=== PATIENT | male | born 1955 | race Caucasian/White ===

== ENCOUNTER 2020-02-14 14:01 | Observation (INO) | payer OTHER ==
[2020-02-14] MEDS ORDERED: Sodium Chloride 0.9% 10 ML Syringe FLUSH PRN (14:27)
[2020-02-14] MEDS ORDERED: Sodium Chloride 0.9% 2.5 ML Syringe FLUSH PRN (14:27)
[2020-02-14] MEDS ORDERED: methylPREDNISolone Sodium Succinate 125 MG/2 ML SDV IVPUSH ONE (14:27)
[2020-02-14] MEDS ORDERED: Albuterol 0.083% 2.5 MG/3 ML Neb Soln NEB ONE ×3 (14:29→14:30)
[2020-02-14] MEDS ORDERED: Albuterol/Ipratropium 3.0-0.5 MG/3 ML Neb Soln NEB ONE (14:29)
[2020-02-14] MEDS ORDERED: Albuterol/Ipratropium 3.0-0.5 MG/3 ML Neb Soln ONE (14:33)
--- NOTE | 2020-02-14 14:35 | EDM.PDOC ---
ED HPI GENERAL MEDICAL PROBLEM - General Chief Complaint: General Stated Complaint: [facility] Time Seen by Provider: 02/14/20 14:02 - History of Present Illness INITIAL COMMENTS - FREE TEXT/NARRATIVE: Patient is a 64-year-old male with a history of asthma and a long smoking history who quit in November 2019 he is presenting with worsening shortness of breath. The patient states that he has been having gradually worsening trouble breathing and wheezing despite using home albuterol and Combivent inhalers over the last couple months. He reports he had 2 - Covid tests he reports some intermittent bilateral lateral chest tightness a nonproductive cough no fever patient has also had recent testing for H. pylori and reports that on CT he was told he had a thickened esophagus. He denies known sick contacts lower extremity swelling he denies any other prior history he denies prior cardiac history denies prior renal history. - Related Data Allergies Allergy/AdvReac Type Severity Reaction Status Date / Time No Known Allergies Allergy Verified 02/14/20 14:44 Home Meds: Home Meds Doxycycline Hyclate [Vibramycin] 1 tab PO BID 02/14/20 [History] Past Medical History Cardiovascular History: Reports: High Cholesterol ED ROS GENERAL - Review of Systems Review Of Systems: See Below Free Text/Narrative/Comment: General: No fever. Skin: No rash. Eyes: No vision problems. ENT: No sore throat. Neck: No neck stiffness. Respiratory: Per HPI Cardiac: Per HPI Gastrointestinal: No nausea, vomiting or abdominal pain. Urinary: No dysuria. Musculoskeletal: No myalgias/arthralgias. Neurologic: No headache. ED EXAM, GENERAL - Physical Exam Exam: See Below Free Text/Narrative:: General Appearance: Mildly increased work of breathing speaking in short sentences Skin: No rash HEENT: Normocephalic/atraumatic, sclera anicteric, mucous membranes moist Neck: Normal range of motion Chest and Lungs: Soft diffuse expiratory wheezing with markedly prolonged expiratory phase and increased work of breathing Cardiovascular: Regular rate and rhythm, no murmur Abdomen: Soft, non-tender Back: Normal Musculoskeletal: No edema or tenderness Neurologic: Awake, alert, no obvious deficits, moving all extremities Psychiatric: Appropriate, cooperative #1 Interpretation EKG Date: 02/14/20 Time: 15:52 EKG Interpretation Comments: Normal sinus rhythm with a rate of 98 normal axis and intervals without acute ischemia Course - Vital Signs Last Recorded V/S: Last Vital Signs Temp 97.9 F 02/14/20 14:38 Pulse 96 02/14/20 15:51 Resp 19 02/14/20 14:38 BP 136/98 H 02/14/20 15:51 Pulse Ox 93 L 02/14/20 15:51 - Orders/Labs/Meds Orders: Active Orders 24 hr Category Date Time Status Patient Status [ADT] Routine ADT 02/14/20 16:39 Ordered EKG Documentation Completion [RC] STAT Care 02/14/20 14:27 Active RT Aerosol Therapy [RC] ASDIRECTED Care 02/14/20 14:29 Active Sodium Chloride 0.9% [Saline Flush] Med 02/14/20 14:27 Active 10 ml FLUSH ASDIRECTED PRN Sodium Chloride 0.9% [Saline Flush] Med 02/14/20 14:27 Active 2.5 ml FLUSH ASDIRECTED PRN BiPAP [RESPCARE] Stat Oth 02/14/20 15:21 Active Saline Lock Insert [OM.PC] Stat Oth 02/14/20 14:27 Ordered Medication Orders Sodium Chloride (Saline Flush) 10 ml FLUSH ASDIRECTED PRN PRN Reason: Keep Vein Open Last Admin: 02/14/20 15:08 Dose: 10 ml Documented by: [id number] Sodium Chloride (Saline Flush) 2.5 ml FLUSH ASDIRECTED PRN PRN Reason: Keep Vein Open Last Admin: 02/14/20 15:08 Dose: 2.5 ml Documented by: [id number] Labs: Laboratory Tests 02/14/20 02/14/20 02/14/20 Range/Units 15:14 15:14 15:14 WBC 7.79 (4.0-11.0) K/uL RBC 5.38 (4.50-5.90) M/uL Hgb 18.2 H (13.0-17.0) g/dL Hct 52.1 H (38.0-50.0) % MCV 96.8 (80.0-98.0) fL MCH 33.8 H (27.0-32.0) pg MCHC 34.9 (31.0-37.0) g/dL RDW Std Deviation 47.8 (28.0-62.0) fl RDW Coeff of Elly 14 (11.0-15.0) % Plt Count 178 (150-400) K/uL MPV 11.40 (7.40-12.00) fL Neut % (Auto) 46.4 L (48.0-80.0) % Lymph % (Auto) 21.8 (16.0-40.0) % [place]christ % (Auto) 19.4 H (0.0-15.0) % Eos % (Auto) 11.9 H (0.0-7.0) % Baso % (Auto) 0.5 (0.0-1.5) % Neut # (Auto) 3.6 (1.4-5.7) K/uL Lymph # (Auto) 1.7 (0.6-2.4) K/uL Gilchrist # (Auto) 1.5 H (0.0-0.8) K/uL Eos # (Auto) 0.9 H (0.0-0.7) K/uL Baso # (Auto) 0.0 (0.0-0.1) K/uL Nucleated RBC % 0.0 /100WBC Nucleated RBCs # 0 K/uL D-Dimer, Quantitative 0.34 (0.0-0.50) mg/L FEU Sodium 138 (136-148) mmol/L Potassium 4.4 (3.5-5.1) mmol/L Chloride 102 (98-107) mmol/L Carbon Dioxide 27.7 (21.0-32.0) mmol/L BUN 14 (7.0-18.0) mg/dL Creatinine 1.2 (0.8-1.3) mg/dL Est Cr Clr Drug Dosing 63.37 mL/min Estimated GFR (MDRD) > 60.0 ml/min Glucose 103 (74-106) mg/dL Calcium 9.6 (8.5-10.1) mg/dL Total Bilirubin 0.7 (0.2-1.0) mg/dL AST 18 (15-37) IU/L ALT 26 (14-63) IU/L Alkaline Phosphatase 112 (46-116) U/L Troponin I < 0.050 (0.000-0.056) ng/mL Total Protein 7.7 (6.4-8.2) g/dL Albumin 3.9 (3.4-5.0) g/dL Globulin 3.8 (2.6-4.0) g/dL Albumin/Globulin Ratio 1.0 (0.9-1.6) Influenza Type A RNA (NEGATIVE) Influenza Type B RNA (NEGATIVE) SARS-CoV-2 RNA (MALENA) (NEGATIVE) 02/14/20 Range/Units 15:40 WBC (4.0-11.0) K/uL RBC (4.50-5.90) M/uL Hgb (13.0-17.0) g/dL Hct (38.0-50.0) % MCV (80.0-98.0) fL MCH (27.0-32.0) pg MCHC (31.0-37.0) g/dL RDW Std Deviation (28.0-62.0) fl RDW Coeff of Elly (11.0-15.0) % Plt Count (150-400) K/uL MPV (7.40-12.00) fL Neut % (Auto) (48.0-80.0) % Lymph % (Auto) (16.0-40.0) % [place]christ % (Auto) (0.0-15.0) % Eos % (Auto) (0.0-7.0) % Baso % (Auto) (0.0-1.5) % Neut # (Auto) (1.4-5.7) K/uL Lymph # (Auto) (0.6-2.4) K/uL Gilchrist # (Auto) (0.0-0.8) K/uL Eos # (Auto) (0.0-0.7) K/uL Baso # (Auto) (0.0-0.1) K/uL Nucleated RBC % /100WBC Nucleated RBCs # K/uL D-Dimer, Quantitative (0.0-0.50) mg/L FEU Sodium (136-148) mmol/L Potassium (3.5-5.1) mmol/L Chloride (98-107) mmol/L Carbon Dioxide (21.0-32.0) mmol/L BUN (7.0-18.0) mg/dL Creatinine (0.8-1.3) mg/dL Est Cr Clr Drug Dosing mL/min Estimated GFR (MDRD) ml/min Glucose (74-106) mg/dL Calcium (8.5-10.1) mg/dL Total Bilirubin (0.2-1.0) mg/dL AST (15-37) IU/L ALT (14-63) IU/L Alkaline Phosphatase (46-116) U/L Troponin I (0.000-0.056) ng/mL Total Protein (6.4-8.2) g/dL Albumin (3.4-5.0) g/dL Globulin (2.6-4.0) g/dL Albumin/Globulin Ratio (0.9-1.6) Influenza Type A RNA NEGATIVE (NEGATIVE) Influenza Type B RNA NEGATIVE (NEGATIVE) SARS-CoV-2 RNA (MALENA) NEGATIVE (NEGATIVE) Meds: Medications Generic Name Dose Route Start Last Admin Trade Name Freq PRN Reason Stop Dose Admin Sodium Chloride 10 ml 02/14/20 14:27 02/14/20 15:08 Saline Flush FLUSH 10 ml ASDIRECTED PRN Administration Keep Vein Open Sodium Chloride 2.5 ml 02/14/20 14:27 02/14/20 15:08 Saline Flush FLUSH 2.5 ml ASDIRECTED PRN Administration Keep Vein Open Discontinued Medications Generic Name Dose Route Start Last Admin Trade Name Freq PRN Reason Stop Dose Admin Albuterol 2.5 mg 02/14/20 14:29 02/14/20 14:47 Proventil Neb Soln [facility] 02/14/20 14:30 2.5 mg ONETIME ONE Administration Albuterol 2.5 mg 02/14/20 14:29 02/14/20 14:48 Proventil Neb Soln [facility] 02/14/20 14:30 2.5 mg ONETIME ONE Administration Albuterol 2.5 mg 02/14/20 14:30 02/14/20 14:48 Proventil Neb Soln [facility] 02/14/20 14:31 2.5 mg ONETIME ONE Administration Albuterol/Ipratropium 3 ml 02/14/20 14:29 02/14/20 15:16 Duoneb 3.0-0.5 Mg/3 Ml [facility] 02/14/20 14:30 Not Given ONETIME ONE Albuterol/Ipratropium Confirm 02/14/20 14:33 02/14/20 14:47 Duoneb 3.0-0.5 Mg/3 Ml Administered 02/14/20 14:34 3 ml Dose Administration 3 ml .ROUTE .STK-MED ONE Methylprednisolone Sodium Succinate 125 mg 02/14/20 14:27 02/14/20 15:08 Solu-Medrol IVPUSH 02/14/20 14:28 125 mg ONETIME ONE Administration Departure - Departure Time of Disposition: 16:41 Disposition: Admitted As Inpatient 65 Condition: Fair Clinical Impression: Acute and chronic respiratory failure with hypoxia - Discharge Information *PRESCRIPTION DRUG MONITORING PROGRAM REVIEWED*: Not Applicable *COPY OF PRESCRIPTION DRUG MONITORING REPORT IN PATIENT JANNIE: Not Applicable Forms: ED Department Discharge Critical Care Note - Critical Care Note Total Time (mins): 50 Comments: Patient presents in respiratory distress and hypoxic respiratory failure requiring prompt evaluation initiation of treatment required to stop seeing other patients requiring complex decision making. Sepsis Event Note (ED) - Focused Exam Vital Signs: Vital Signs Temp Pulse Resp BP Pulse Ox 02/14/20 15:51 96 136/98 H 93 L 02/14/20 15:48 97 125/98 H 94 L 02/14/20 15:36 101 H 151/95 H 92 L 02/14/20 15:21 103 H 155/95 H 92 L 02/14/20 15:06 100 144/87 H 96 02/14/20 14:51 90 131/80 96 02/14/20 14:42 90 131/93 H 94 L 02/14/20 14:38 97.9 F 98 19 155/95 H 88 L - My Orders Last 24 Hours: My Active Orders 02/14/20 14:27 EKG Documentation Completion [RC] STAT Sodium Chloride 0.9% [Saline Flush] 10 ml FLUSH ASDIRECTED PRN Sodium Chloride 0.9% [Saline Flush] 2.5 ml FLUSH ASDIRECTED PRN Saline Lock Insert [OM.PC] Stat 02/14/20 14:29 RT Aerosol Therapy [RC] ASDIRECTED 02/14/20 15:21 BiPAP [RESPCARE] Stat 02/14/20 16:39 Patient Status [ADT] Routine - Assessment/Plan Last 24 Hours: My Active Orders 02/14/20 14:27 EKG Documentation Completion [RC] STAT Sodium Chloride 0.9% [Saline Flush] 10 ml FLUSH ASDIRECTED PRN Sodium Chloride 0.9% [Saline Flush] 2.5 ml FLUSH ASDIRECTED PRN Saline Lock Insert [OM.PC] Stat 02/14/20 14:29 RT Aerosol Therapy [RC] ASDIRECTED 02/14/20 15:21 BiPAP [RESPCARE] Stat 02/14/20 16:39 Patient Status [ADT] Routine Assessment:: 64-year-old male presenting with hypoxic respiratory failure and a clinical picture that is overall most consistent with COPD. Primary cardiac process considered I think it is unlikely but EKG and troponin pending. PE considered I think this is unlikely as well but D-dimer pending. We have no data for his recent Covid test so Covid needs to be considered and relevant swabs pending as well. Patient does have some mild to moderate respiratory distress at this point and DuoNeb with additional albuterol for a total of hour-long treatment has been ordered in addition to 125 of Solu-Medrol. Given his room air saturation of less than 88% he will require admission for hypoxic respiratory failure. Pneumonia pneumothorax very unlikely but chest x-ray pending. Patient is respiratory status led to a delay in obtaining his EKG. 1525: Patient's labs show significant increase in his hemoglobin consistent with chronic hypoxic respiratory failure. Patient has had minimal improvement after the hour-long breathing treatment and steroids after discussion with the patient we will transition to BiPAP. Patient is developing generalized headache that he relates to his breathing I think it is likely related to his breathing and the multiple doses of albuterol that he has been receiving. That said given his respiratory state I do not think Reglan Benadryl narcotics are appropriate at this stage. 1630: On reassessment the patient is breathing much more comfortably on the BiPAP he is speaking in full sentences his headache has improved and his work of breathing is improved. He is satting in the mid 90s on 10/5 with an FiO2 of 40%. Given his hypoxic respiratory failure I think admission for further treatment and evaluation is prudent D-dimer Covid swab and other blood work is unremarkable. We await callback from the hospitalist. 1640: Pt discussed with Dr. Carrera. Will admit to the ICU given the patient's new BiPaP requirement.
--- NOTE | 2020-02-14 15:02 | CR ---
TECHNIQUE: Frontal chest radiograph, single AP view. INDICATION: Cough and shortness of breath. COMPARISON: None available. FINDINGS: No focal pulmonary opacity, pneumothorax, or pleural effusion. Normal cardiac and mediastinal contours. IMPRESSION: No acute cardiopulmonary findings. Dictated by Naun Guy MD @ 02/14/2020 3:02:13 PM Dictated by: Naun Guy MD @ 02/14/2020 15:02:20 (Electronically Signed)
[2020-02-14 15:55] LABS: BLOOD UREA NITROGEN,BUN 14 mg/dL (7.0-18.0); CARBON DIOXIDE,CO2 27.7 mmol/L (21.0-32.0); CHLORIDE,CL 102 mmol/L (98-107); GLUCOSE RANDOM 103 mg/dL (74-106); POTASSIUM,K 4.4 mmol/L (3.5-5.1); SODIUM,NA 138 mmol/L (136-148)
[2020-02-14 16:28] LABS: CORONAVIRUS COVID-19 NAA NEGATIVE (NEGATIVE); INFLUENZA A NAA NEGATIVE (NEGATIVE); INFLUENZA B NAA NEGATIVE (NEGATIVE)
--- NOTE | 2020-02-14 17:48 | PN ---
THC Physician - Brief Progress [id number]/01/2021 17:31[facility] [place], [place] - OBED (CINDY) - OBED ROLF PEÑADate of Service 02/14/2020 17:31HPI/Events of Note eICU admission note64 year-old male with past history significant for asthma and likely COPD overlap presented to the hospital with shortness of breath. Patient mentions progressively worsening dyspnea over the last couple of months without significant improvement with inhalers. He does have a ssociated chest tightness as well as nonproductive cough. On arrival to the ED patient was noted to b e tachycardic in the 90s with otherwise stable vitals. Initial blood work was relatively unremarkable with the exception of polycythemia at 18.2. Patient was given nebs along with Solu-Medrol and initia mick on BiPAP given work of breathing and admitted to the ICU for closer monitoring.Patient seen on ca dottie, does not appear to be in acute distress at this time and seems comfortable currently on BiPAP.V ital signs reviewedLab/EMR reviewedCOPD exacerbation-Agree with scheduled nebs along with Solu-Medrol .-Recommend initiating either doxycycline or azithromycin which ever is available for anti-inflammato ry purposes and atypical coverage.-Chest x-ray without any acute process and patient significantly im proved with ER management thus agree bacterial infectious process is less likely.-Once patient has si gnificantly improved in terms of work of breathing and wheezing recommend trialing off BiPAP at that time. Continue scheduled nebs along with steroids until then.Thank you for allowing us to participat e in the care of this patient.Interventions Major-Respiratory failure - evaluation and managementElec tronically Signed by: YOLIS BELLA) on 02/14/2020 17:47
[2020-02-14] MEDS ORDERED: Albuterol/Ipratropium 3.0-0.5 MG/3 ML Neb Soln NEB PRN (19:33)
[2020-02-14] MEDS ORDERED: Azithromycin 500 MG Vial IV SCH (19:45)
--- NOTE | 2020-02-14 20:05 | PCM.HP.2 ---
H&P History of Present Illness - General Date of Service: 02/14/20 Admit Problem/Dx: Admission Diagnosis/Problem Admission Diagnosis/Problem Respiratory failure with hypoxia - History of Present Illness Initial Comments - Free Text/Narative: 64 yo male with pmh of COPD who reports in November had a COPD exacerbation and since has not been back to his normal self. PAtient reports over past several days increasing shortness of breath, wheezing, and cough. He denies any fevers or chest pain. He was seen in [facility] clinic and given doxycyline. He Called the [facility] who told him to go to the ER today. IN the ED he was noted to be in some respiratory distress, he was given duonebs and BIPAP with improvement in his symptoms. - Related Data Allergies/Adverse Reactions: Allergies Allergy/AdvReac Type Severity Reaction Status Date / Time No Known Allergies Allergy Verified 02/14/20 20:20 Home Medications: Home Meds Doxycycline Hyclate [Vibramycin] 1 tab PO BID 02/14/20 [History] Past Medical History Cardiovascular History: Reports: High Cholesterol Respiratory History: Reports: Asthma, COPD Social & Family History - Tobacco Use Tobacco Use Status *Q: Former Tobacco User Years of Tobacco use: 45 Packs/Tins Daily: 1.5 Used Tobacco, but Quit: Yes Month/Year Tobacco Last Used: 11/2019 - Caffeine Use Caffeine Use: Reports: Coffee - Recreational Drug Use Recreational Drug Use: No H&P Review of Systems - Review of Systems: Review Of Systems: Comprehensive ROS is negative, except as noted in HPI. Exam - Exam Exam: See Below - Vital Signs Vital Signs: Last Vital Signs Temp 35.8 C L 02/14/20 17:35 Pulse 82 02/14/20 17:06 Resp 18 02/14/20 17:35 BP 123/82 02/14/20 17:35 Pulse Ox 98 02/14/20 17:35 Weight: 77.819 kg - Exam General: Alert, Oriented HEENT: Mucosa Moist & [place] Lungs: Normal Respiratory Effort, Wheezing Cardiovascular: Regular Rate, Regular Rhythm GI/Abdominal Exam: Normal Bowel Sounds, Soft, Non-Tender Extremities: Non-Tender, No Pedal Edema Skin: Warm, Dry, Intact - Patient Data Lab Results Last 24 hrs: Laboratory Results - last 24 hr 02/14/20 02/14/20 02/14/20 Range/Units 15:14 15:14 15:14 WBC 7.79 (4.0-11.0) K/uL RBC 5.38 (4.50-5.90) M/uL Hgb 18.2 H (13.0-17.0) g/dL Hct 52.1 H (38.0-50.0) % MCV 96.8 (80.0-98.0) fL MCH 33.8 H (27.0-32.0) pg MCHC 34.9 (31.0-37.0) g/dL RDW Std Deviation 47.8 (28.0-62.0) fl RDW Coeff of Elly 14 (11.0-15.0) % Plt Count 178 (150-400) K/uL MPV 11.40 (7.40-12.00) fL Neut % (Auto) 46.4 L (48.0-80.0) % Lymph % (Auto) 21.8 (16.0-40.0) % [place] % (Auto) 19.4 H (0.0-15.0) % Eos % (Auto) 11.9 H (0.0-7.0) % Baso % (Auto) 0.5 (0.0-1.5) % Neut # (Auto) 3.6 (1.4-5.7) K/uL Lymph # (Auto) 1.7 (0.6-2.4) K/uL [place] # (Auto) 1.5 H (0.0-0.8) K/uL Eos # (Auto) 0.9 H (0.0-0.7) K/uL Baso # (Auto) 0.0 (0.0-0.1) K/uL Nucleated RBC % 0.0 /100WBC Nucleated RBCs # 0 K/uL D-Dimer, Quantitative 0.34 (0.0-0.50) mg/L FEU ABG pH (7.35-7.45) ABG pCO2 (35-45) mmHG ABG pO2 (75-100) mmHG ABG HCO3 (22-26) mEq/L ABG Total CO2 ABG Base Excess (-2.0-2.0) Sodium 138 (136-148) mmol/L Potassium 4.4 (3.5-5.1) mmol/L Chloride 102 (98-107) mmol/L Carbon Dioxide 27.7 (21.0-32.0) mmol/L BUN 14 (7.0-18.0) mg/dL Creatinine 1.2 (0.8-1.3) mg/dL Est Cr Clr Drug Dosing 63.37 mL/min Estimated GFR (MDRD) > 60.0 ml/min Glucose 103 (74-106) mg/dL Calcium 9.6 (8.5-10.1) mg/dL Total Bilirubin 0.7 (0.2-1.0) mg/dL AST 18 (15-37) IU/L ALT 26 (14-63) IU/L Alkaline Phosphatase 112 (46-116) U/L Troponin I < 0.050 (0.000-0.056) ng/mL Total Protein 7.7 (6.4-8.2) g/dL Albumin 3.9 (3.4-5.0) g/dL Globulin 3.8 (2.6-4.0) g/dL Albumin/Globulin Ratio 1.0 (0.9-1.6) Influenza Type A RNA (NEGATIVE) Influenza Type B RNA (NEGATIVE) SARS-CoV-2 RNA (MALENA) (NEGATIVE) 02/14/20 02/14/20 Range/Units 15:40 18:10 WBC (4.0-11.0) K/uL RBC (4.50-5.90) M/uL Hgb (13.0-17.0) g/dL Hct (38.0-50.0) % MCV (80.0-98.0) fL MCH (27.0-32.0) pg MCHC (31.0-37.0) g/dL RDW Std Deviation (28.0-62.0) fl RDW Coeff of Elly (11.0-15.0) % Plt Count (150-400) K/uL MPV (7.40-12.00) fL Neut % (Auto) (48.0-80.0) % Lymph % (Auto) (16.0-40.0) % [place] % (Auto) (0.0-15.0) % Eos % (Auto) (0.0-7.0) % Baso % (Auto) (0.0-1.5) % Neut # (Auto) (1.4-5.7) K/uL Lymph # (Auto) (0.6-2.4) K/uL [place]kin # (Auto) (0.0-0.8) K/uL Eos # (Auto) (0.0-0.7) K/uL Baso # (Auto) (0.0-0.1) K/uL Nucleated RBC % /100WBC Nucleated RBCs # K/uL D-Dimer, Quantitative (0.0-0.50) mg/L FEU ABG pH 7.384 (7.35-7.45) ABG pCO2 44 (35-45) mmHG ABG pO2 106 H (75-100) mmHG ABG HCO3 27 H (22-26) mEq/L ABG Total CO2 22.5 ABG Base Excess 0.8 (-2.0-2.0) Sodium (136-148) mmol/L Potassium (3.5-5.1) mmol/L Chloride (98-107) mmol/L Carbon Dioxide (21.0-32.0) mmol/L BUN (7.0-18.0) mg/dL Creatinine (0.8-1.3) mg/dL Est Cr Clr Drug Dosing mL/min Estimated GFR (MDRD) ml/min Glucose (74-106) mg/dL Calcium (8.5-10.1) mg/dL Total Bilirubin (0.2-1.0) mg/dL AST (15-37) IU/L ALT (14-63) IU/L Alkaline Phosphatase (46-116) U/L Troponin I (0.000-0.056) ng/mL Total Protein (6.4-8.2) g/dL Albumin (3.4-5.0) g/dL Globulin (2.6-4.0) g/dL Albumin/Globulin Ratio (0.9-1.6) Influenza Type A RNA NEGATIVE (NEGATIVE) Influenza Type B RNA NEGATIVE (NEGATIVE) SARS-CoV-2 RNA (MALENA) NEGATIVE (NEGATIVE) Result Diagrams: 02/14/20 15:14 02/14/20 15:14 Sepsis Event Note - Evaluation Sepsis Screening Result: No Definite Risk - Focused Exam Vital Signs: Vital Signs Temp Pulse Resp BP Pulse Ox 02/14/20 17:35 35.8 C L 18 123/82 98 02/14/20 17:06 82 23 H 127/82 98 02/14/20 16:21 88 126/84 96 02/14/20 15:51 96 136/98 H 93 L 02/14/20 15:48 97 125/98 H 94 L 02/14/20 15:36 101 H 151/95 H 92 L 02/14/20 15:21 103 H 155/95 H 92 L 02/14/20 15:06 100 144/87 H 96 02/14/20 14:51 90 131/80 96 02/14/20 14:42 90 131/93 H 94 L 02/14/20 14:38 36.6 C 98 19 155/95 H 88 L Problem List Initiated/Reviewed/Updated: Yes Orders Last 24hrs: Active Orders 24 hr Category Date Time Status Patient Status [ADT] Routine ADT 02/14/20 16:39 Active EKG Documentation Completion [RC] STAT Care 02/14/20 14:27 Active RT Aerosol Therapy [RC] ASDIRECTED Care 02/14/20 14:29 Active RT Aerosol Therapy [RC] ASDIRECTED Care 02/14/20 19:34 Ordered Regular Diet [DIET] Diet 02/14/20 Dinner Active BASIC METABOLIC PANEL,BMP [CHEM] AM Lab 02/15/20 05:11 Ordered BASIC METABOLIC PANEL,BMP [CHEM] AM Lab 02/16/20 05:11 Ordered CBC WITH AUTO DIFF [HEME] AM Lab 02/15/20 05:11 Ordered CBC WITH AUTO DIFF [HEME] AM Lab 02/16/20 05:11 Ordered Albuterol/Ipratropium [DuoNeb 3.0-0.5 MG/3 ML] Med 02/14/20 19:33 Ordered 3 ml NEB Q4HRRT PRN Albuterol/Ipratropium [DuoNeb 3.0-0.5 MG/3 ML] Med 02/15/20 00:00 Ordered 3 ml NEB Q6HRRT Azithromycin [Zithromax] 500 mg Med 02/14/20 20:00 Active Sodium Chloride 0.9% [Normal Saline (AdvBag)] 250 ml IV Q24H Sodium Chloride 0.9% [Saline Flush] Med 02/14/20 14:27 Active 10 ml FLUSH ASDIRECTED PRN Sodium Chloride 0.9% [Saline Flush] Med 02/14/20 14:27 Active 2.5 ml FLUSH ASDIRECTED PRN methylPREDNISolone Sod Succ [Solu-MEDROL] Med 02/15/20 02:00 Ordered 125 mg IVPUSH Q12H BiPAP [RESPCARE] Stat Oth 02/14/20 15:21 Active Saline Lock Insert [OM.PC] Stat Oth 02/14/20 14:27 Ordered Medication Orders Albuterol/Ipratropium (Duoneb 3.0-0.5 Mg/3 Ml) 3 ml NEB Q6HRRT [place] Albuterol/Ipratropium (Duoneb 3.0-0.5 Mg/3 Ml) 3 ml NEB Q4HRRT PRN PRN Reason: Wheezing Azithromycin 500 mg/ Sodium (Chloride) 250 mls @ 250 mls/hr IV Q24H [place] Methylprednisolone Sodium Succinate (Solu-Medrol) 125 mg IVPUSH Q12H [place] Sodium Chloride (Saline Flush) 10 ml FLUSH ASDIRECTED PRN PRN Reason: Keep Vein Open Last Admin: 02/14/20 15:08 Dose: 10 ml Documented by: [id number] Sodium Chloride (Saline Flush) 2.5 ml FLUSH ASDIRECTED PRN PRN Reason: Keep Vein Open Last Admin: 02/14/20 15:08 Dose: 2.5 ml Documented by: [id number] Assessment/Plan Comment:: 64 yo male admitted for acute hypoxic respiratory failure due to COPD exacerbation. Patient has been weened off BIPAP and is now on 3 L NC. Treating with Solumedrol, duonebs and azithromycin.
[2020-02-14] MEDS: Azithromycin 500 MG in Sodium Chloride 0.9% 250 ML IV SCH (20:15)
--- NOTE | 2020-02-14 22:36 | PN ---
THC Physician - Brief Progress [id number]/01/2021 22:34[facility] [place] [place] [facility] (CINDY[facility] - ROLF MILLARDDate of Service 02/14/2020 22:34HPI/Events of Note TUMS requested for heart burn, order placedInterventions Minor-Routine modifications to care plan (e.g. PRN medications for pain, fever)
[2020-02-14] MEDS: Calcium Carbonate 500 MG Tab.Chew PO PRN (22:44)
[2020-02-14] MEDS: Albuterol/Ipratropium 3.0-0.5 MG/3 ML Neb Soln NEB SCH (23:28)
[2020-02-14] MEDS: guaiFENesin 100 MG/5 ML Soln 5 ML UD Cup PO PRN (23:28)
--- NOTE | 2020-02-15 00:36 | PN ---
THC Physician - Brief Progress [id number]/01/2021 23:07[facility] jan [place], [place] - OBED (CINDY) - ROLF MILLARDDate of Service 02/14/2020 23:07HPI/Events of Note Cough - robitussin orderedInterventions Minor-Routine modifications to care plan (e.g. PRN m edications for pain, fever)
[2020-02-15] MEDS: methylPREDNISolone Sodium Succinate 125 MG/2 ML SDV IVPUSH SCH ×2 (01:20→13:01)
[2020-02-15] MEDS: Albuterol/Ipratropium 3.0-0.5 MG/3 ML Neb Soln NEB SCH ×4 (05:02→23:18)
[2020-02-15 06:48] LABS: CARBON DIOXIDE,CO2 29.8 mmol/L (21.0-32.0); POTASSIUM,K 5.2 mmol/L (3.5-5.1)
[2020-02-15] MEDS ORDERED: Acetaminophen 325 MG Tab PO ONE (08:43)
[2020-02-15] MEDS ORDERED: Celecoxib 100 MG Cap PO PRN (10:45)
[2020-02-15] MEDS: guaiFENesin 100 MG/5 ML Soln 5 ML UD Cup PO PRN ×2 (10:46→21:50)
--- NOTE | 2020-02-15 10:50 | PCM.PN ---
- General Info Date of Service: 02/15/20 - Review of Systems Systems Review Comment:: patient reports breathing has improved, reports cough - Patient Data Vitals - Most Recent: Last Vital Signs Temp 37.1 C 02/15/20 08:00 Pulse 82 02/14/20 17:06 Resp 18 02/15/20 09:00 BP 118/83 02/15/20 09:00 Pulse Ox 91 L 02/15/20 10:20 Weight - Most Recent: 78.698 kg I&O - Last 24 Hours: Intake & Output 02/14/20 02/15/20 02/15/20 22:59 06:59 14:59 Intake Total 850 Output Total 0 Balance 850 Lab Results Last 24 Hours: Laboratory Results - last 24 hr 02/14/20 02/14/20 02/14/20 Range/Units 15:14 15:14 15:14 WBC 7.79 (4.0-11.0) K/uL RBC 5.38 (4.50-5.90) M/uL Hgb 18.2 H (13.0-17.0) g/dL Hct 52.1 H (38.0-50.0) % MCV 96.8 (80.0-98.0) fL MCH 33.8 H (27.0-32.0) pg MCHC 34.9 (31.0-37.0) g/dL RDW Std Deviation 47.8 (28.0-62.0) fl RDW Coeff of Elly 14 (11.0-15.0) % Plt Count 178 (150-400) K/uL MPV 11.40 (7.40-12.00) fL Neut % (Auto) 46.4 L (48.0-80.0) % Lymph % (Auto) 21.8 (16.0-40.0) % [place] % (Auto) 19.4 H (0.0-15.0) % Eos % (Auto) 11.9 H (0.0-7.0) % Baso % (Auto) 0.5 (0.0-1.5) % Neut # (Auto) 3.6 (1.4-5.7) K/uL Lymph # (Auto) 1.7 (0.6-2.4) K/uL [place] # (Auto) 1.5 H (0.0-0.8) K/uL Eos # (Auto) 0.9 H (0.0-0.7) K/uL Baso # (Auto) 0.0 (0.0-0.1) K/uL Nucleated RBC % 0.0 /100WBC Nucleated RBCs # 0 K/uL D-Dimer, Quantitative 0.34 (0.0-0.50) mg/L FEU ABG pH (7.35-7.45) ABG pCO2 (35-45) mmHG ABG pO2 (75-100) mmHG ABG HCO3 (22-26) mEq/L ABG Total CO2 ABG Base Excess (-2.0-2.0) Sodium 138 (136-148) mmol/L Potassium 4.4 (3.5-5.1) mmol/L Chloride 102 (98-107) mmol/L Carbon Dioxide 27.7 (21.0-32.0) mmol/L BUN 14 (7.0-18.0) mg/dL Creatinine 1.2 (0.8-1.3) mg/dL Est Cr Clr Drug Dosing 63.37 mL/min Estimated GFR (MDRD) > 60.0 ml/min Glucose 103 (74-106) mg/dL Calcium 9.6 (8.5-10.1) mg/dL Total Bilirubin 0.7 (0.2-1.0) mg/dL AST 18 (15-37) IU/L ALT 26 (14-63) IU/L Alkaline Phosphatase 112 (46-116) U/L Troponin I < 0.050 (0.000-0.056) ng/mL Total Protein 7.7 (6.4-8.2) g/dL Albumin 3.9 (3.4-5.0) g/dL Globulin 3.8 (2.6-4.0) g/dL Albumin/Globulin Ratio 1.0 (0.9-1.6) Influenza Type A RNA (NEGATIVE) Influenza Type B RNA (NEGATIVE) SARS-CoV-2 RNA (MALENA) (NEGATIVE) 02/14/20 02/14/20 02/15/20 Range/Units 15:40 18:10 06:10 WBC 8.67 (4.0-11.0) K/uL RBC 5.06 (4.50-5.90) M/uL Hgb 16.8 (13.0-17.0) g/dL Hct 48.7 (38.0-50.0) % MCV 96.2 (80.0-98.0) fL MCH 33.2 H (27.0-32.0) pg MCHC 34.5 (31.0-37.0) g/dL RDW Std Deviation 46.8 (28.0-62.0) fl RDW Coeff of Elly 13 (11.0-15.0) % Plt Count 186 (150-400) K/uL MPV 11.20 (7.40-12.00) fL Neut % (Auto) 94.2 H (48.0-80.0) % Lymph % (Auto) 4.3 L (16.0-40.0) % [place] % (Auto) 1.5 (0.0-15.0) % Eos % (Auto) 0.0 (0.0-7.0) % Baso % (Auto) 0.0 (0.0-1.5) % Neut # (Auto) 8.2 H (1.4-5.7) K/uL Lymph # (Auto) 0.4 L (0.6-2.4) K/uL [place] # (Auto) 0.1 (0.0-0.8) K/uL Eos # (Auto) 0.0 (0.0-0.7) K/uL Baso # (Auto) 0.0 (0.0-0.1) K/uL Nucleated RBC % 0.0 /100WBC Nucleated RBCs # 0 K/uL D-Dimer, Quantitative (0.0-0.50) mg/L FEU ABG pH 7.384 (7.35-7.45) ABG pCO2 44 (35-45) mmHG ABG pO2 106 H (75-100) mmHG ABG HCO3 27 H (22-26) mEq/L ABG Total CO2 22.5 ABG Base Excess 0.8 (-2.0-2.0) Sodium (136-148) mmol/L Potassium (3.5-5.1) mmol/L Chloride (98-107) mmol/L Carbon Dioxide (21.0-32.0) mmol/L BUN (7.0-18.0) mg/dL Creatinine (0.8-1.3) mg/dL Est Cr Clr Drug Dosing mL/min Estimated GFR (MDRD) ml/min Glucose (74-106) mg/dL Calcium (8.5-10.1) mg/dL Total Bilirubin (0.2-1.0) mg/dL AST (15-37) IU/L ALT (14-63) IU/L Alkaline Phosphatase (46-116) U/L Troponin I (0.000-0.056) ng/mL Total Protein (6.4-8.2) g/dL Albumin (3.4-5.0) g/dL Globulin (2.6-4.0) g/dL Albumin/Globulin Ratio (0.9-1.6) Influenza Type A RNA NEGATIVE (NEGATIVE) Influenza Type B RNA NEGATIVE (NEGATIVE) SARS-CoV-2 RNA (MALENA) NEGATIVE (NEGATIVE) 02/15/20 Range/Units 06:10 WBC (4.0-11.0) K/uL RBC (4.50-5.90) M/uL Hgb (13.0-17.0) g/dL Hct (38.0-50.0) % MCV (80.0-98.0) fL MCH (27.0-32.0) pg MCHC (31.0-37.0) g/dL RDW Std Deviation (28.0-62.0) fl RDW Coeff of Elly (11.0-15.0) % Plt Count (150-400) K/uL MPV (7.40-12.00) fL Neut % (Auto) (48.0-80.0) % Lymph % (Auto) (16.0-40.0) % [place] % (Auto) (0.0-15.0) % Eos % (Auto) (0.0-7.0) % Baso % (Auto) (0.0-1.5) % Neut # (Auto) (1.4-5.7) K/uL Lymph # (Auto) (0.6-2.4) K/uL [place] # (Auto) (0.0-0.8) K/uL Eos # (Auto) (0.0-0.7) K/uL Baso # (Auto) (0.0-0.1) K/uL Nucleated RBC % /100WBC Nucleated RBCs # K/uL D-Dimer, Quantitative (0.0-0.50) mg/L FEU ABG pH (7.35-7.45) ABG pCO2 (35-45) mmHG ABG pO2 (75-100) mmHG ABG HCO3 (22-26) mEq/L ABG Total CO2 ABG Base Excess (-2.0-2.0) Sodium 137 (136-148) mmol/L Potassium 5.2 H (3.5-5.1) mmol/L Chloride 102 (98-107) mmol/L Carbon Dioxide 29.8 (21.0-32.0) mmol/L BUN 19 H (7.0-18.0) mg/dL Creatinine 1.3 (0.8-1.3) mg/dL Est Cr Clr Drug Dosing 58.49 mL/min Estimated GFR (MDRD) 55.4 ml/min Glucose 167 H (74-106) mg/dL Calcium 9.6 (8.5-10.1) mg/dL Total Bilirubin (0.2-1.0) mg/dL AST (15-37) IU/L ALT (14-63) IU/L Alkaline Phosphatase (46-116) U/L Troponin I (0.000-0.056) ng/mL Total Protein (6.4-8.2) g/dL Albumin (3.4-5.0) g/dL Globulin (2.6-4.0) g/dL Albumin/Globulin Ratio (0.9-1.6) Influenza Type A RNA (NEGATIVE) Influenza Type B RNA (NEGATIVE) SARS-CoV-2 RNA (MALENA) (NEGATIVE) Med Orders - Current: Current Medications Acetaminophen (Tylenol) 650 mg PO Q6H PRN PRN Reason: pain Albuterol/Ipratropium (Duoneb 3.0-0.5 Mg/3 Ml) 3 ml NEB Q6HRRT [place] Last Admin: 02/15/20 05:02 Dose: 3 ml Documented by: Albuterol/Ipratropium (Duoneb 3.0-0.5 Mg/3 Ml) 3 ml NEB Q4HRRT PRN PRN Reason: Wheezing Last Admin: 02/14/20 21:07 Dose: 3 ml Documented by: Aspirin (Halfprin) 81 mg PO DAILY [place] Calcium Carbonate/Glycine (Tums) 500 mg PO Q6HR PRN PRN Reason: Indigestion Last Admin: 02/14/20 22:44 Dose: 500 mg Documented by: Guaifenesin (Robitussin) 100 mg PO Q6H PRN PRN Reason: Cough Last Admin: 02/15/20 10:46 Dose: 100 mg Documented by: Azithromycin 500 mg/ Sodium (Chloride) 250 mls @ 250 mls/hr IV Q24H [place] Last Admin: 02/14/20 20:15 Dose: 250 mls/hr Documented by: Methylprednisolone Sodium Succinate (Solu-Medrol) 125 mg IVPUSH Q12H [facility] Last Admin: 02/15/20 01:20 Dose: 125 mg Documented by: Non-Formulary Medication (Celecoxib [Celecoxib]) 200 mg PO DAILY PRN PRN Reason: Pain (mild 1-3) Non-Formulary Medication (Valacyclovir Hcl) 1,000 mg PO DAILY [facility] Non-Formulary Medication (Prednisolone Acetate/Pf [Prednisolone Acet 1% Eye Drop]) 1 drop EYEBOTH Q48H [facility] Omeprazole (Omeprazole) 20 mg PO ACBREAKFAST [facility] Sodium Chloride (Saline Flush) 10 ml FLUSH ASDIRECTED PRN PRN Reason: Keep Vein Open Last Admin: 02/14/20 15:08 Dose: 10 ml Documented by: Sodium Chloride (Saline Flush) 2.5 ml FLUSH ASDIRECTED PRN PRN Reason: Keep Vein Open Last Admin: 02/14/20 15:08 Dose: 2.5 ml Documented by: Discontinued Medications Acetaminophen (Tylenol) 650 mg PO NOW ONE Stop: 02/15/20 08:44 Last Admin: 02/15/20 09:07 Dose: 650 mg Documented by: Albuterol (Proventil Neb Soln) 2.5 mg NEB ONETIME ONE Stop: 02/14/20 14:30 Last Admin: 02/14/20 14:47 Dose: 2.5 mg Documented by: Albuterol (Proventil Neb Soln) 2.5 mg NEB ONETIME ONE Stop: 02/14/20 14:30 Last Admin: 02/14/20 14:48 Dose: 2.5 mg Documented by: Albuterol (Proventil Neb Soln) 2.5 mg NEB ONETIME ONE Stop: 02/14/20 14:31 Last Admin: 02/14/20 14:48 Dose: 2.5 mg Documented by: Albuterol/Ipratropium (Duoneb 3.0-0.5 Mg/3 Ml) 3 ml NEB ONETIME ONE Stop: 02/14/20 14:30 Last Admin: 02/14/20 15:16 Dose: Not Given Documented by: Albuterol/Ipratropium (Duoneb 3.0-0.5 Mg/3 Ml) Confirm Administered Dose 3 ml .Tre ConnorsSTK-MED ONE Stop: 02/14/20 14:34 Last Admin: 02/14/20 14:47 Dose: 3 ml Documented by: Methylprednisolone Sodium Succinate (Solu-Medrol) 125 mg IVPUSH ONETIME ONE Stop: 02/14/20 14:28 Last Admin: 02/14/20 15:08 Dose: 125 mg Documented by: - Exam General: Alert, Oriented Neck: Supple Lungs: Normal Respiratory Effort, Wheezing Cardiovascular: Regular Rate, Regular Rhythm Extremities: Non-Tender, No Pedal Edema Skin: Warm, Dry, Intact Neurological: No New Focal Deficit Sepsis Event Note - Evaluation Sepsis Screening Result: No Definite Risk - Focused Exam Vital Signs: Vital Signs Temp Resp BP Pulse Ox 02/15/20 10:20 91 L 02/15/20 10:10 86 L 02/15/20 09:00 18 118/83 94 L 02/15/20 08:00 37.1 C 21 H 108/58 L 96 02/15/20 07:00 22 H 95/51 L 97 02/15/20 06:00 19 108/57 L 97 02/15/20 05:00 15 130/78 95 02/15/20 04:00 36.4 C 25 H 126/76 95 02/15/20 03:00 23 H 118/68 96 02/15/20 02:00 25 H 99/57 L 96 02/15/20 01:00 25 H 106/47 L 94 L 02/15/20 00:00 36.8 C 17 128/73 94 L 02/14/20 23:00 12 106/76 97 - Problem List Review Problem List Initiated/Reviewed/Updated: Yes - My Orders Last 24 Hours: My Active Orders 02/14/20 Dinner Regular Diet [DIET] 02/14/20 19:33 Albuterol/Ipratropium [DuoNeb 3.0-0.5 MG/3 ML] 3 ml NEB Q4HRRT PRN 02/14/20 19:34 RT Aerosol Therapy [RC] ASDIRECTED 02/14/20 20:00 Azithromycin [Zithromax] 500 mg Sodium Chloride 0.9% [Normal Saline (AdvBag)] 250 ml IV Q24H 02/15/20 00:00 Albuterol/Ipratropium [DuoNeb 3.0-0.5 MG/3 ML] 3 ml NEB Q6HRRT 02/15/20 02:00 methylPREDNISolone Sod Succ [Solu-MEDROL] 125 mg IVPUSH Q12H 02/15/20 09:32 Transfer Patient (Change bed) [ADT] Routine Telemetry Monitoring [Cardiac Monitoring] [RC] Q8H 02/15/20 10:45 Prednisolone Acetate/Pf [Prednisolone Acet 1% Eye Drop] 1 drop EYEBOTH Q48H 02/15/20 10:45 Celecoxib [Celecoxib] 200 mg PO DAILY PRN 02/15/20 14:45 Acetaminophen [TylenoL] 650 mg PO Q6H PRN 02/16/20 05:11 BASIC METABOLIC PANEL,BMP [CHEM] AM CBC WITH AUTO DIFF [HEME] AM 02/16/20 07:30 Omeprazole 20 mg PO ACBREAKFAST 02/16/20 09:00 Aspirin [Halfprin] 81 mg PO DAILY valACYclovir HCl 1,000 mg PO DAILY - Plan Plan:: 64 yo male admitted for acute hypoxic respiratory failure due to COPD exacerbation. Patient has been weened off BIPAP and is now on 2 L NC. We will continue solumedrol, duonebs and azithromycin.
[2020-02-15] MEDS: Aspirin 81 MG Tab.EC PO SCH (12:43)
[2020-02-15] MEDS: valACYclovir 500 MG Tab PO SCH (12:43)
[2020-02-15] MEDS: Calcium Carbonate 500 MG Tab.Chew PO PRN (13:06)
[2020-02-15] MEDS: Azithromycin 500 MG in Sodium Chloride 0.9% 250 ML IV SCH (20:10)
[2020-02-15] MEDS ORDERED: prednisoLONE Acetate 1% Ophth Susp 5 ML Bottle EYEBOTH SCH (21:00)
[2020-02-15] MEDS: Acetaminophen 325 MG Tab PO PRN (21:50)
[2020-02-16] MEDS: methylPREDNISolone Sodium Succinate 125 MG/2 ML SDV IVPUSH SCH (01:19)
[2020-02-16] MEDS: Acetaminophen 325 MG Tab PO PRN (03:50)
[2020-02-16] MEDS: Albuterol/Ipratropium 3.0-0.5 MG/3 ML Neb Soln NEB SCH ×2 (05:56→11:48)
[2020-02-16 06:28] LABS: CARBON DIOXIDE,CO2 27.9 mmol/L (21.0-32.0); POTASSIUM,K 5.1 mmol/L (3.5-5.1)
[2020-02-16] MEDS ORDERED: Sodium Chloride 0.65% Nasal Spray 45 ML Bottle NAS PRN (07:06)
[2020-02-16] MEDS ORDERED: Omeprazole 20 MG Cap.CR PO SCH (07:30)
[2020-02-16] MEDS: valACYclovir 500 MG Tab PO SCH (08:07)
[2020-02-16] MEDS: Aspirin 81 MG Tab.EC PO SCH (08:07)
--- NOTE | 2020-02-16 12:13 | PCM.DCSUM1 ---
Discharge Summary - Discharge Data Discharge Date: 02/16/20 Discharge Disposition: Home, Self-Care 01 Condition: Stable - Referral to Home Health Primary Care Physician: PCP Not In Area - Patient Summary/Data Hospital Course: 64 yo male with pmh of COPD who reports in November had a COPD exacerbation and since has not been back to his normal self. Patient presents with increasing shortness of breath, wheezing and cough or past several days. IN the ED he was noted to be in moderate respiratory distress, he was given duonebs and BIPAP with improvement in his symptoms. Chest x-ray was clear. He was admitted for COPD exacerbation and treated with solumedrol and azithromycin. He was quickly weaned off bipap. On third day of admission he was weaned off nasal canula oxygen and is requesting discharge home. He was discharged with five more days of prednisone and azithromycin. He is [facility]. - Discharge Plan *PRESCRIPTION DRUG MONITORING PROGRAM REVIEWED*: Not Applicable *COPY OF PRESCRIPTION DRUG MONITORING REPORT IN PATIENT JANNIE: Not Applicable Prescriptions/Med Rec: Azithromycin 250 mg PO DAILY #5 tablet Omeprazole 20 mg PO DAILY #30 capsule. predniSONE [Prednisone] 50 mg PO DAILY #5 tablet Home Medications: Home Meds Albuterol Sulfate [Proair Digihaler] 2 puff IH QID PRN 02/15/20 [History] Albuterol/Ipratropium [Combivent Respimat] 1 inh INH QID 02/15/20 [History] Aspirin [Aspirin EC] 81 mg PO DAILY 02/15/20 [History] Budesonide/Formoterol Fumarate [Budesonide-Formoterol 80-4.5] 2 puff IH BID 02/15/20 [History] Celecoxib 200 mg PO DAILY PRN 02/15/20 [History] Magnesium Oxide [Mag-Oxide] 400 mg PO BEDTIME PRN 02/15/20 [History] Omeprazole 20 mg PO ACBREAKFAST 02/15/20 [History] Prednisolone Acetate/Pf [Prednisolone Acet 1% Eye Drop] 1 drop EYEBOTH Q48H 02/15/20 [History] polyethylene glycoL 3350 [Polyethylene Glycol 3350] 17 gm PO DAILY 02/15/20 [History] valACYclovir HCl [valACYclovir] 1,000 mg PO DAILY 02/15/20 [History] Azithromycin 250 mg PO DAILY #5 tablet 02/16/20 [Rx] Omeprazole 20 mg PO DAILY #30 capsule. 02/16/20 [Rx] predniSONE [Prednisone] 50 mg PO DAILY #5 tablet 02/16/20 [Rx] Patient Handouts: Chronic Obstructive Pulmonary Disease, [id number], Acute Respiratory Failure, Adult Forms: ED Department Discharge Referrals: [facility] [Outside] (Please ff up after 1 week, call your primary provider at [facility].) - Discharge Summary/Plan Comment DC Time >30 min.: No - Patient Data Vitals - Most Recent: Last Vital Signs Temp 36.6 C 02/16/20 11:48 Pulse 85 02/16/20 11:48 Resp 18 02/16/20 11:48 BP 126/67 02/16/20 11:48 Pulse Ox 96 02/16/20 11:48 Weight - Most Recent: 78.698 kg I&O - Last 24 hours: Intake & Output 02/15/20 02/16/20 02/16/20 22:59 06:59 14:59 Intake Total 1422 900 Output Total 0 Balance 1422 900 Lab Results - Last 24 hrs: Laboratory Results - last 24 hr 02/16/20 02/16/20 Range/Units 06:00 06:00 WBC 17.44 H (4.0-11.0) K/uL RBC 4.89 (4.50-5.90) M/uL Hgb 16.1 (13.0-17.0) g/dL Hct 47.3 (38.0-50.0) % MCV 96.7 (80.0-98.0) fL MCH 32.9 H (27.0-32.0) pg MCHC 34.0 (31.0-37.0) g/dL RDW Std Deviation 47.2 (28.0-62.0) fl RDW Coeff of Elly 13 (11.0-15.0) % Plt Count 190 (150-400) K/uL MPV 11.20 (7.40-12.00) fL Neut % (Auto) 93.1 H (48.0-80.0) % Lymph % (Auto) 3.4 L (16.0-40.0) % [place] % (Auto) 3.4 (0.0-15.0) % Eos % (Auto) 0.0 (0.0-7.0) % Baso % (Auto) 0.1 (0.0-1.5) % Neut # (Auto) 16.2 H (1.4-5.7) K/uL Lymph # (Auto) 0.6 (0.6-2.4) K/uL [place] # (Auto) 0.6 (0.0-0.8) K/uL Eos # (Auto) 0.0 (0.0-0.7) K/uL Baso # (Auto) 0.0 (0.0-0.1) K/uL Nucleated RBC % 0.0 /100WBC Nucleated RBCs # 0 K/uL Sodium 136 (136-148) mmol/L Potassium 5.1 (3.5-5.1) mmol/L Chloride 102 (98-107) mmol/L Carbon Dioxide 27.9 (21.0-32.0) mmol/L BUN 31 H (7.0-18.0) mg/dL Creatinine 1.3 (0.8-1.3) mg/dL Est Cr Clr Drug Dosing 58.49 mL/min Estimated GFR (MDRD) 55.4 ml/min Glucose 149 H (74-106) mg/dL Calcium 9.6 (8.5-10.1) mg/dL Med Orders - Current: Current Medications Acetaminophen (Tylenol) 650 mg PO Q6H PRN PRN Reason: pain Last Admin: 02/16/20 03:50 Dose: 650 mg Documented by: Albuterol/Ipratropium (Duoneb 3.0-0.5 Mg/3 Ml) 3 ml NEB Q6HRRT [facility] Last Admin: 02/16/20 11:48 Dose: 3 ml Documented by: Albuterol/Ipratropium (Duoneb 3.0-0.5 Mg/3 Ml) 3 ml NEB Q4HRRT PRN PRN Reason: Wheezing Last Admin: 02/14/20 21:07 Dose: 3 ml Documented by: Aspirin (Halfprin) 81 mg PO DAILY [facility] Last Admin: 02/16/20 08:07 Dose: 81 mg Documented by: Calcium Carbonate/Glycine (Tums) 500 mg PO Q6HR PRN PRN Reason: Indigestion Last Admin: 02/15/20 13:06 Dose: 500 mg Documented by: Celecoxib (Celebrex) 200 mg PO DAILY PRN PRN Reason: Pain (mild 1-3) Last Admin: 02/15/20 12:44 Dose: 200 mg Documented by: Guaifenesin (Robitussin) 100 mg PO Q6H PRN PRN Reason: Cough Last Admin: 02/15/20 21:50 Dose: 100 mg Documented by: Azithromycin 500 mg/ Sodium (Chloride) 250 mls @ 250 mls/hr IV Q24H [facility] Last Admin: 02/15/20 20:10 Dose: 250 mls/hr Documented by: Methylprednisolone Sodium Succinate (Solu-Medrol) 125 mg IVPUSH Q12H [place] Last Admin: 02/16/20 01:19 Dose: 125 mg Documented by: Omeprazole (Omeprazole) 20 mg PO ACBREAKFAST [facility] Last Admin: 02/16/20 06:53 Dose: 20 mg Documented by: Prednisolone Acetate (Pred [place] 1% Ophth Susp) 1 ml EYEBOTH Q48H [facility] Last Admin: 02/15/20 20:11 Dose: Not Given Documented by: Sodium Chloride (Saline Flush) 10 ml FLUSH ASDIRECTED PRN PRN Reason: Keep Vein Open Last Admin: 02/14/20 15:08 Dose: 10 ml Documented by: Sodium Chloride (Saline Flush) 2.5 ml FLUSH ASDIRECTED PRN PRN Reason: Keep Vein Open Last Admin: 02/14/20 15:08 Dose: 2.5 ml Documented by: Sodium Chloride ([place] Nasal [place]) 2 ml JAD Q4H PRN PRN Reason: Congestion Last Admin: 02/16/20 08:06 Dose: 2 spray Documented by: Valacyclovir HCl (Valtrex) 1,000 mg PO DAILY [facility] Last Admin: 02/16/20 08:07 Dose: 1,000 mg Documented by: Discontinued Medications Acetaminophen (Tylenol) 650 mg PO NOW ONE Stop: 02/15/20 08:44 Last Admin: 02/15/20 09:07 Dose: 650 mg Documented by: Albuterol (Proventil Neb Soln) 2.5 mg NEB ONETIME ONE Stop: 02/14/20 14:30 Last Admin: 02/14/20 14:47 Dose: 2.5 mg Documented by: Albuterol (Proventil Neb Soln) 2.5 mg NEB ONETIME ONE Stop: 02/14/20 14:30 Last Admin: 02/14/20 14:48 Dose: 2.5 mg Documented by: Albuterol (Proventil Neb Soln) 2.5 mg NEB ONETIME ONE Stop: 02/14/20 14:31 Last Admin: 02/14/20 14:48 Dose: 2.5 mg Documented by: Albuterol/Ipratropium (Duoneb 3.0-0.5 Mg/3 Ml) 3 ml NEB ONETIME ONE Stop: 02/14/20 14:30 Last Admin: 02/14/20 15:16 Dose: Not Given Documented by: Albuterol/Ipratropium (Duoneb 3.0-0.5 Mg/3 Ml) Confirm Administered Dose 3 ml .ROUTE .STK-MED ONE Stop: 02/14/20 14:34 Last Admin: 02/14/20 14:47 Dose: 3 ml Documented by: Methylprednisolone Sodium Succinate (Solu-Medrol) 125 mg IVPUSH ONETIME ONE Stop: 02/14/20 14:28 Last Admin: 02/14/20 15:08 Dose: 125 mg Documented by:
== END 2020-02-16 13:35 | disposition home or self-care (01) ==
LOC: MW.ED 14:01 → MW.ICU 16:57
PROVIDERS: ADMIT Internal Medicine; ATTEND Internal Medicine
DX: J44.1 Chronic obstructive pulmonary disease with (acute) exacerbation (principal); J96.01 Acute respiratory failure with hypoxia; E78.00 Pure hypercholesterolemia, unspecified; Z79.82 Long term (current) use of aspirin; Z20.822 Contact with and (suspected) exposure to COVID-19; Z79.899 Other long term (current) drug therapy; Z87.891 Personal history of nicotine dependence
CPT/HCPCS: 0240U; 36415; 36600; 71045; 80048; 80053; 82803; 84484; 85025; 85379; 93005; 96365; 96366; 96375; 96376; 99285; A9270; G0378; J0456; J2930; J7050; 93010; 96374; 99291; J7620-GY

== ENCOUNTER 2020-05-20 10:43 | Inpatient (IN) | payer OTHER ==
[2020-05-20] MEDS ORDERED: methylPREDNISolone Sodium Succinate 125 MG/2 ML SDV IVPUSH ONE (10:44)
[2020-05-20] MEDS ORDERED: Albuterol/Ipratropium 3.0-0.5 MG/3 ML Neb Soln NEB ONE (10:44)
[2020-05-20] MEDS ORDERED: Sodium Chloride 0.9% 10 ML Syringe FLUSH PRN (10:44)
[2020-05-20] MEDS ORDERED: Sodium Chloride 0.9% 2.5 ML Syringe FLUSH PRN (10:44)
[2020-05-20] MEDS ORDERED: Terbutaline 1 MG/ML SDV SUBCUT ONE ×2 (10:45→12:00)
[2020-05-20] MEDS ORDERED: Magnesium Sulfate/Water 2 GM in Premix Bag 1 BAG IV ONE (10:45)
[2020-05-20] MEDS ORDERED: Sodium Chloride 0.9% 1,000 ML IV ONE (10:46)
[2020-05-20] MEDS ORDERED: LORazepam 2 MG/ML SDV IVPUSH ONE (10:46)
--- NOTE | 2020-05-20 10:46 | EDM.PDOC ---
ED HPI GENERAL MEDICAL PROBLEM - General Stated Complaint: COPD Time Seen by Provider: 05/20/20 10:43 Source of Information: Reports: Patient History Limitations: Reports: No Limitations, Respiratory Distress - History of Present Illness INITIAL COMMENTS - FREE TEXT/NARRATIVE: 64-year-old male past medical history COPD not on home O2 presents for worsening shortness of breath. Patient is in respiratory distress on my exam and unable to provide a complete history at this time. He states that he has been feeling unwell since last November. He was admitted before in February for similar presentation and required BiPAP and admission. He notes that his shortness of breath has been acutely worsening over the last few days. He does note a productive cough. He also endorses chest pain and tightness. chest Pain Score (Numeric/FACES): 4 - Related Data Allergies Allergy/AdvReac Type Severity Reaction Status Date / Time No Known Allergies Allergy Verified 02/14/20 20:20 Home Meds: Home Meds Albuterol Sulfate [Proair Digihaler] 2 puff IH QID PRN 02/15/20 [History] Albuterol/Ipratropium [Combivent Respimat] 1 inh INH QID 02/15/20 [History] Aspirin [Aspirin EC] 81 mg PO DAILY 02/15/20 [History] Budesonide/Formoterol Fumarate [Budesonide-Formoterol 80-4.5] 2 puff IH BID 02/15/20 [History] Celecoxib 200 mg PO DAILY PRN 02/15/20 [History] Magnesium Oxide [Mag-Oxide] 400 mg PO BEDTIME PRN 02/15/20 [History] Omeprazole 20 mg PO ACBREAKFAST 02/15/20 [History] Prednisolone Acetate/Pf [Prednisolone Acet 1% Eye Drop] 1 drop EYEBOTH Q48H 02/15/20 [History] polyethylene glycoL 3350 [Polyethylene Glycol 3350] 17 gm PO DAILY 02/15/20 [History] valACYclovir HCl [valACYclovir] 1,000 mg PO DAILY 02/15/20 [History] Azithromycin 250 mg PO DAILY #5 tablet 02/16/20 [Rx] Omeprazole 20 mg PO DAILY #30 capsule. 02/16/20 [Rx] predniSONE [Prednisone] 50 mg PO DAILY #5 tablet 02/16/20 [Rx] Past Medical History Cardiovascular History: Reports: High Cholesterol Respiratory History: Reports: Asthma, COPD Social & Family History - Caffeine Use Caffeine Use: Reports: Coffee ED ROS GENERAL - Review of Systems Review Of Systems: Comprehensive ROS is negative, except as noted in HPI. ED EXAM, GENERAL - Physical Exam Exam: See Below Exam Limited By: Respiratory Distress General Appearance: Alert, WD/WN, Moderate Distress Throat/Mouth: Normal Voice, No Airway Compromise Head: Atraumatic, Normocephalic Neck: Normal Inspection Respiratory/Chest: Respiratory Distress, Decreased Breath Sounds, Wheezing Cardiovascular: Normal Peripheral Pulses, No Edema, Tachycardia GI/Abdominal: Soft, Non-Tender Extremities: Normal Inspection Neurological: Alert Psychiatric: Normal Affect, Normal Mood, Anxious Skin Exam: Warm, Dry, Intact, Normal Color Course - Vital Signs Last Recorded V/S: Last Vital Signs Temp 97.4 F 05/20/20 10:48 Pulse 124 H 05/20/20 10:48 Resp 30 H 05/20/20 10:48 BP 199/94 H 05/20/20 11:46 Pulse Ox 64 L 05/20/20 10:48 - Orders/Labs/Meds Orders: Active Orders 24 hr Category Date Time Status BIPAP Adult [RT BiPAP/CPAP] [RC] ASDIRECTED Care 05/20/20 11:26 Active Cardiac Monitoring [RC] . DIRECTED Care 05/20/20 10:44 Active EKG Documentation Completion [RC] STAT Care 05/20/20 10:44 Active Pulse Oximetry [RC] ASDIRECTED Care 05/20/20 10:44 Active CULTURE BLOOD [BC] Stat Lab 05/20/20 10:45 Received CULTURE BLOOD [BC] Stat Lab 05/20/20 11:06 Received UA W/SAEED RFLX IF INDICATED [URIN] Stat Lab 05/20/20 10:45 Ordered Azithromycin [Zithromax] 500 mg Med 05/20/20 11:00 Active Sodium Chloride 0.9% [Normal Saline (AdvBag)] 250 ml IV ONETIME Sodium Chloride 0.9% [Saline Flush] Med 05/20/20 10:44 Active 10 ml FLUSH ASDIRECTED PRN Sodium Chloride 0.9% [Saline Flush] Med 05/20/20 10:44 Active 2.5 ml FLUSH ASDIRECTED PRN Blood Culture x2 Reflex Set [OM.PC] Stat Oth 05/20/20 10:45 Ordered Saline Lock Insert [OM.PC] Stat Oth 05/20/20 10:44 Ordered Medication Orders Azithromycin 500 mg/ Sodium (Chloride) 250 mls @ 250 mls/hr IV ONETIME [place] Last Admin: 05/20/20 12:37 Dose: 250 mls/hr Documented by: DREA Sodium Chloride (Sodium Chloride 0.9% 10 Ml Syringe) 10 ml FLUSH ASDIRECTED PRN PRN Reason: Keep Vein Open Last Admin: 05/20/20 11:38 Dose: 10 ml Documented by: DREA Sodium Chloride (Sodium Chloride 0.9% 2.5 Ml Syringe) 2.5 ml FLUSH ASDIRECTED PRN PRN Reason: Keep Vein Open Last Admin: 05/20/20 11:38 Dose: 2.5 ml Documented by: DREA Labs: Laboratory Tests 05/20/20 05/20/20 05/20/20 Range/Units 10:45 10:45 10:45 WBC 9.17 (4.0-11.0) K/uL RBC 5.52 (4.50-5.90) M/uL Hgb 18.4 H (13.0-17.0) g/dL Hct 52.7 H (38.0-50.0) % MCV 95.5 (80.0-98.0) fL MCH 33.3 H (27.0-32.0) pg MCHC 34.9 (31.0-37.0) g/dL RDW Std Deviation 46.0 (28.0-62.0) fl RDW Coeff of Elly 13 (11.0-15.0) % Plt Count 202 (150-400) K/uL MPV 11.60 (7.40-12.00) fL Add Manual Diff YES Neutrophils % (Manual) 28 L (48.0-80.0) % Band Neutrophils % 1 % Lymphocytes % (Manual) 37 (16.0-40.0) % Monocytes % (Manual) 8 (0.0-15.0) % Eosinophils % (Manual) 25 H (0.0-7.0) % Basophils % (Manual) 1 (0.0-1.5) % Nucleated RBC % 0.0 /100WBC Absolute Seg Neuts 2.6 (1.4-5.7) Band Neutrophils # 0.1 Lymphocytes # (Manual) 3.4 H (0.6-2.4) Monocytes # (Manual) 0.7 (0.0-0.8) Eosinophils # (Manual) 2.3 H (0.0-0.7) Basophils # (Manual) 0.1 (0.0-0.1) Nucleated RBCs # 0 K/uL ABG pH (7.35-7.45) ABG pCO2 (35-45) mmHG ABG pO2 (75-100) mmHG ABG HCO3 (22-26) mEq/L ABG Total CO2 ABG Base Excess (-2.0-2.0) Lactate 2.6 H* (0.20-2.00) mmol/L Sodium 138 (136-148) mmol/L Potassium 4.4 (3.5-5.1) mmol/L Chloride 103 (98-107) mmol/L Carbon Dioxide 27.4 (21.0-32.0) mmol/L BUN 13 (7.0-18.0) mg/dL Creatinine 1.3 (0.8-1.3) mg/dL Est Cr Clr Drug Dosing 58.49 mL/min Estimated GFR (MDRD) 55.4 ml/min Glucose 162 H (74-106) mg/dL Calcium 8.7 (8.5-10.1) mg/dL Magnesium 2.1 (1.8-2.4) mg/dL Total Bilirubin 1.0 (0.2-1.0) mg/dL AST 24 (15-37) IU/L ALT 33 (14-63) IU/L Alkaline Phosphatase 112 (46-116) U/L Troponin I < 0.050 (0.000-0.056) ng/mL B-Natriuretic Peptide (<100) PG/ML Total Protein 7.6 (6.4-8.2) g/dL Albumin 3.9 (3.4-5.0) g/dL Globulin 3.7 (2.6-4.0) g/dL Albumin/Globulin Ratio 1.1 (0.9-1.6) SARS-CoV-2 RNA (MALENA) (NEGATIVE) 05/20/20 05/20/20 05/20/20 Range/Units 10:45 10:50 11:52 WBC (4.0-11.0) K/uL RBC (4.50-5.90) M/uL Hgb (13.0-17.0) g/dL Hct (38.0-50.0) % MCV (80.0-98.0) fL MCH (27.0-32.0) pg MCHC (31.0-37.0) g/dL RDW Std Deviation (28.0-62.0) fl RDW Coeff of Elly (11.0-15.0) % Plt Count (150-400) K/uL MPV (7.40-12.00) fL Add Manual Diff Neutrophils % (Manual) (48.0-80.0) % Band Neutrophils % % Lymphocytes % (Manual) (16.0-40.0) % Monocytes % (Manual) (0.0-15.0) % Eosinophils % (Manual) (0.0-7.0) % Basophils % (Manual) (0.0-1.5) % Nucleated RBC % /100WBC Absolute Seg Neuts (1.4-5.7) Band Neutrophils # Lymphocytes # (Manual) (0.6-2.4) Monocytes # (Manual) (0.0-0.8) Eosinophils # (Manual) (0.0-0.7) Basophils # (Manual) (0.0-0.1) Nucleated RBCs # K/uL ABG pH 7.262 L (7.35-7.45) ABG pCO2 60 H (35-45) mmHG ABG pO2 223 H (75-100) mmHG ABG HCO3 27 H (22-26) mEq/L ABG Total CO2 23.5 ABG Base Excess -1.9 (-2.0-2.0) Lactate (0.20-2.00) mmol/L Sodium (136-148) mmol/L Potassium (3.5-5.1) mmol/L Chloride (98-107) mmol/L Carbon Dioxide (21.0-32.0) mmol/L BUN (7.0-18.0) mg/dL Creatinine (0.8-1.3) mg/dL Est Cr Clr Drug Dosing mL/min Estimated GFR (MDRD) ml/min Glucose (74-106) mg/dL Calcium (8.5-10.1) mg/dL Magnesium (1.8-2.4) mg/dL Total Bilirubin (0.2-1.0) mg/dL AST (15-37) IU/L ALT (14-63) IU/L Alkaline Phosphatase (46-116) U/L Troponin I (0.000-0.056) ng/mL B-Natriuretic Peptide 73 (<100) PG/ML Total Protein (6.4-8.2) g/dL Albumin (3.4-5.0) g/dL Globulin (2.6-4.0) g/dL Albumin/Globulin Ratio (0.9-1.6) SARS-CoV-2 RNA (MALENA) NEGATIVE (NEGATIVE) 05/20/20 Range/Units 12:46 WBC (4.0-11.0) K/uL RBC (4.50-5.90) M/uL Hgb (13.0-17.0) g/dL Hct (38.0-50.0) % MCV (80.0-98.0) fL MCH (27.0-32.0) pg MCHC (31.0-37.0) g/dL RDW Std Deviation (28.0-62.0) fl RDW Coeff of Elly (11.0-15.0) % Plt Count (150-400) K/uL MPV (7.40-12.00) fL Add Manual Diff Neutrophils % (Manual) (48.0-80.0) % Band Neutrophils % % Lymphocytes % (Manual) (16.0-40.0) % Monocytes % (Manual) (0.0-15.0) % Eosinophils % (Manual) (0.0-7.0) % Basophils % (Manual) (0.0-1.5) % Nucleated RBC % /100WBC Absolute Seg Neuts (1.4-5.7) Band Neutrophils # Lymphocytes # (Manual) (0.6-2.4) Monocytes # (Manual) (0.0-0.8) Eosinophils # (Manual) (0.0-0.7) Basophils # (Manual) (0.0-0.1) Nucleated RBCs # K/uL ABG pH 7.318 L (7.35-7.45) ABG pCO2 49 H (35-45) mmHG ABG pO2 79 (75-100) mmHG ABG HCO3 25 (22-26) mEq/L ABG Total CO2 22.0 ABG Base Excess -1.7 (-2.0-2.0) Lactate (0.20-2.00) mmol/L Sodium (136-148) mmol/L Potassium (3.5-5.1) mmol/L Chloride (98-107) mmol/L Carbon Dioxide (21.0-32.0) mmol/L BUN (7.0-18.0) mg/dL Creatinine (0.8-1.3) mg/dL Est Cr Clr Drug Dosing mL/min Estimated GFR (MDRD) ml/min Glucose (74-106) mg/dL Calcium (8.5-10.1) mg/dL Magnesium (1.8-2.4) mg/dL Total Bilirubin (0.2-1.0) mg/dL AST (15-37) IU/L ALT (14-63) IU/L Alkaline Phosphatase (46-116) U/L Troponin I (0.000-0.056) ng/mL B-Natriuretic Peptide (<100) PG/ML Total Protein (6.4-8.2) g/dL Albumin (3.4-5.0) g/dL Globulin (2.6-4.0) g/dL Albumin/Globulin Ratio (0.9-1.6) SARS-CoV-2 RNA (MALENA) (NEGATIVE) Meds: Medications Generic Name Dose Route Start Last Admin Trade Name Freq PRN Reason Stop Dose Admin Azithromycin 500 mg/ Sodium 250 mls @ 250 mls/hr 05/20/20 11:00 05/20/20 12:37 Chloride IV 250 mls/hr ONETIME [place] Administration Sodium Chloride 10 ml 05/20/20 10:44 05/20/20 11:38 Sodium Chloride 0.9% 10 Ml Syringe FLUSH 10 ml ASDIRECTED PRN Administration Keep Vein Open Sodium Chloride 2.5 ml 05/20/20 10:44 05/20/20 11:38 Sodium Chloride 0.9% 2.5 Ml Syringe FLUSH 2.5 ml ASDIRECTED PRN Administration Keep Vein Open Discontinued Medications Generic Name Dose Route Start Last Admin Trade Name Freq PRN Reason Stop Dose Admin Albuterol/Ipratropium 3 ml 05/20/20 10:44 05/20/20 11:06 Albuterol/Ipratropium 3.0-0.5 Mg/3 Ml Neb Soln NEB 05/20/20 10:45 3 ml ONETIME ONE Administration Clonidine HCl 0.1 mg 05/20/20 11:32 05/20/20 11:46 Clonidine 0.1 Mg Tab PO 05/20/20 11:33 0.1 mg ONETIME ONE Administration Diltiazem HCl 25 mg 05/20/20 11:30 05/20/20 11:46 Diltiazem 25 Mg/5 Ml Sdv IVPUSH 05/20/20 11:31 Not Given ONETIME ONE Magnesium Sulfate 2 gm/ Premix 50 mls @ 50 mls/hr 05/20/20 10:45 05/20/20 11:38 IV 05/20/20 11:44 50 mls/hr ONETIME ONE Administration Sodium Chloride 1,000 mls @ 999 mls/hr 05/20/20 10:46 05/20/20 11:43 Normal Saline IV 05/20/20 11:46 999 mls/hr .Bolus ONE Administration Ceftriaxone Sodium/Dextrose 1 50 mls @ 100 mls/hr 05/20/20 10:48 05/20/20 11:38 gm/ Premix IV 05/20/20 11:17 100 mls/hr ONETIME ONE Administration Lorazepam 0.5 mg 05/20/20 10:46 05/20/20 11:43 Lorazepam 2 Mg/Ml Sdv IVPUSH 05/20/20 10:47 0.5 mg ONETIME ONE Administration Methylprednisolone Sodium Succinate 125 mg 05/20/20 10:44 05/20/20 11:36 Methylprednisolone Sodium Succinate 125 Mg/2 Ml Sdv IVPUSH 05/20/20 10:45 125 mg ONETIME ONE Administration Terbutaline Sulfate 0.25 mg 05/20/20 10:45 05/20/20 12:40 Terbutaline 1 Mg/Ml Sdv SUBCUT 05/20/20 10:46 0.25 mg ONETIME ONE Administration Terbutaline Sulfate 0.25 mg 05/20/20 12:00 05/20/20 12:40 Terbutaline 1 Mg/Ml Sdv SUBCUT 05/20/20 12:01 Not Given ONETIME ONE - Re-Assessments/Exams Free Text/Narrative Re-Assessment/Exam: 05/20/20 10:51 We will get extensive labs and imaging. Will get chest x-ray. Will start BiPAP. Will give DuoNeb, Solu-Medrol, magnesium, terbutaline. Will give ceftriaxone and azithromycin. Will get blood cultures. Will give small dose of Ativan for BiPAP. 05/20/20 11:31 Patient planes of headache particularly when coughing. He is also quite hypertensive. Will give clonidine and get a head CT. 05/20/20 11:33 Chest x-ray is unremarkable. I have a lower suspicion of pneumonia although patient will be given 1 dose of ceftriaxone and azithromycin in emergency department. He has no leukocytosis so again low suspicion pneumonia. I think this is likely hypercapnic respiratory failure from COPD. 05/20/20 11:55 Patient clinically improving; he remains on BiPAP at this time. Labs grossly unremarkable, COVID, head CT pending. 05/20/20 12:38 Covid testing negative. Head CT is normal. We will follow up repeat ABG and admit patient. 05/20/20 13:18 Repeat ABG is much improved. Spoke with Dr. Carrera who agrees to admit patient under his service. Departure - Departure Time of Disposition: 13:18 Disposition: Admitted As Inpatient 65 Condition: Fair Clinical Impression: COPD exacerbation, Acute respiratory failure with hypoxia - Discharge Information Referrals: Vasquez Lala MD [Primary Care Provider] - Critical Care Note - Critical Care Note Total Time (mins): 35 Sepsis Event Note (ED) - Focused Exam Vital Signs: Vital Signs Temp Pulse Resp BP BP Pulse Ox 05/20/20 11:46 199/94 H 05/20/20 10:48 97.4 F 124 H 30 H 199/94 H 64 L - My Orders Last 24 Hours: My Active Orders 05/20/20 10:44 Cardiac Monitoring [RC] . DIRECTED EKG Documentation Completion [RC] STAT Pulse Oximetry [RC] ASDIRECTED Sodium Chloride 0.9% [Saline Flush] 10 ml FLUSH ASDIRECTED PRN Sodium Chloride 0.9% [Saline Flush] 2.5 ml FLUSH ASDIRECTED PRN Saline Lock Insert [OM.PC] Stat 05/20/20 10:45 CULTURE BLOOD [BC] Stat UA W/SAEED RFLX IF INDICATED [URIN] Stat Blood Culture x2 Reflex Set [OM.PC] Stat 05/20/20 11:00 Azithromycin [Zithromax] 500 mg Sodium Chloride 0.9% [Normal Saline (AdvBag)] 250 ml IV ONETIME 05/20/20 11:06 CULTURE BLOOD [BC] Stat 05/20/20 11:26 BIPAP Adult [RT BiPAP/CPAP] [RC] ASDIRECTED - Assessment/Plan Last 24 Hours: My Active Orders 05/20/20 10:44 Cardiac Monitoring [RC] . DIRECTED EKG Documentation Completion [RC] STAT Pulse Oximetry [RC] ASDIRECTED Sodium Chloride 0.9% [Saline Flush] 10 ml FLUSH ASDIRECTED PRN Sodium Chloride 0.9% [Saline Flush] 2.5 ml FLUSH ASDIRECTED PRN Saline Lock Insert [OM.PC] Stat 05/20/20 10:45 CULTURE BLOOD [BC] Stat UA W/SAEED RFLX IF INDICATED [URIN] Stat Blood Culture x2 Reflex Set [OM.PC] Stat 05/20/20 11:00 Azithromycin [Zithromax] 500 mg Sodium Chloride 0.9% [Normal Saline (AdvBag)] 250 ml IV ONETIME 05/20/20 11:06 CULTURE BLOOD [BC] Stat 05/20/20 11:26 BIPAP Adult [RT BiPAP/CPAP] [RC] ASDIRECTED
[2020-05-20] MEDS ORDERED: cefTRIAXone 1 GM in Premix Bag 1 BAG IV ONE (10:48)
[2020-05-20] MEDS ORDERED: Azithromycin 500 MG in Sodium Chloride 0.9% 250 ML IV SCH (11:00)
[2020-05-20 11:26] LABS: BLOOD UREA NITROGEN,BUN 13 mg/dL (7.0-18.0); CARBON DIOXIDE,CO2 27.4 mmol/L (21.0-32.0); CHLORIDE,CL 103 mmol/L (98-107); GLUCOSE RANDOM 162 mg/dL (74-106); POTASSIUM,K 4.4 mmol/L (3.5-5.1); SODIUM,NA 138 mmol/L (136-148)
--- NOTE | 2020-05-20 11:28 | CR ---
CHEST 1 VIEW AP INDICATION: Short of breath. IMPRESSION: Normal heart size and vascular pattern. Lungs are clear of focal opacities. No pneumothorax or pleural abnormality. Dictated by Wilton Sellers MD @ May 20 2020 11:26AM Signed by Dr. Wilton Sellers @ May 20 2020 11:26AM
[2020-05-20] MEDS ORDERED: Diltiazem 25 MG/5 ML SDV IVPUSH ONE (11:30)
[2020-05-20] MEDS ORDERED: cloNIDine 0.1 MG Tab PO ONE (11:32)
--- NOTE | 2020-05-20 12:27 | CT ---
Indication: Headache Technique: Volumetric multidetector CT images of the head were obtained without the administration of low osmolar intravenous contrast. Comparison: None available Findings: There is no intra-axial or extra-axial fluid collection. There is no mass effect or midline shift. There is mild atrophic changes of the vertex. Otherwise the ventricles and sulci are grossly normal in size and position for age. There is minimal chronic small vessel disease change within the subcortical and periventricular white matter. Otherwise, the brain parenchyma is preserved in attenuation and art-white differentiation. The orbits and their contents are grossly within normal limits. The bony calvarium is grossly intact. There is extensive mucus retention cysts and bubbly secretions within the paranasal sinuses predominantly within the frontal sinuses, ethmoid air cells and left maxillary sinus. The mastoid air cells are well aerated. Impression: Mild age-appropriate changes of the brain without evidence of acute intracranial abnormality. Acute on chronic pansinusitis. Please note that all CT scans at this facility use dose modulation, iterative reconstruction, and/or weight-based dosing when appropriate to reduce radiation dose to as low as reasonably achievable. Dictated by René Blake MD @ May 20 2020 12:24PM Signed by Dr. René Blake @ May 20 2020 12:26PM
--- NOTE | 2020-05-20 14:11 | PCM.HP.2 ---
H&P History of Present Illness - General Date of Service: 05/20/20 Admit Problem/Dx: Admission Diagnosis/Problem Admission Diagnosis/Problem Respiratory failure - History of Present Illness Initial Comments - Free Text/Narative: 64 yo male with pmh of COPD who presents to the ED with a several day history of increasing shortness of breath, wheezing and cough when productive of thick yellow sputum. In the ED patient was noted to be in respiratory distress sating in the 80s. He was placed on BIPAP and given solumedrol and duonebs. Patient was given ativan to help with breathing with BIPAP. He was also given clonidine for elevated BP as well as Rocephin and Azithromycin for possible respiratory infection. Patient reports his breathing has improved with help with BIPAP. He denies any fevers, blood in stool or chest pain. PAtient reports he has been following Dr. Lala. 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 He was also seen last week in the Cancer center in [place] for bone biopsies as he reports his doctors are suspect Multiple myeloma due to lesions on pelvis and ribs. chest Pain Score (Numeric/FACES): 4 - Related Data Allergies/Adverse Reactions: Allergies Allergy/AdvReac Type Severity Reaction Status Date / Time No Known Allergies Allergy Verified 05/20/20 19:22 Home Medications: Home Meds Albuterol Sulfate [Proair Digihaler] 2 puff IH QID PRN 02/15/20 [History] Albuterol/Ipratropium [Combivent Respimat] 1 inh INH QID 02/15/20 [History] Aspirin [Aspirin EC] 81 mg PO DAILY 02/15/20 [History] Budesonide/Formoterol Fumarate [Budesonide-Formoterol 80-4.5] 2 puff IH BID 02/15/20 [History] Celecoxib 200 mg PO DAILY PRN 02/15/20 [History] Magnesium Oxide [Mag-Oxide] 400 mg PO BEDTIME PRN 02/15/20 [History] Omeprazole 20 mg PO ACBREAKFAST 02/15/20 [History] polyethylene glycoL 3350 [Polyethylene Glycol 3350] 17 gm PO DAILY 02/15/20 [History] valACYclovir HCl [valACYclovir] 1,000 mg PO DAILY 02/15/20 [History] Past Medical History Cardiovascular History: Reports: High Cholesterol Respiratory History: Reports: Asthma, COPD Social & Family History - Caffeine Use Caffeine Use: Reports: Coffee H&P Review of Systems - Review of Systems: Review Of Systems: Comprehensive ROS is negative, except as noted in HPI. Exam - Exam Exam: See Below - Vital Signs Vital Signs: Last Vital Signs Temp 36.3 C 05/20/20 10:48 Pulse 124 H 05/20/20 10:48 Resp 30 H 05/20/20 10:48 BP 199/94 H 05/20/20 11:46 Pulse Ox 64 L 05/20/20 10:48 Weight: 81.647 kg - Exam General: Alert, Oriented HEENT: Mucosa Moist & [place] Lungs: Clear to Auscultation, Rhonchi Cardiovascular: Regular Rate, Regular Rhythm GI/Abdominal Exam: Normal Bowel Sounds, Soft, Non-Tender Extremities: Non-Tender, No Pedal Edema Skin: Warm, Dry, Intact Neurological: No: Focal Deficit - Patient Data Lab Results Last 24 hrs: Laboratory Results - last 24 hr 05/20/20 05/20/20 05/20/20 Range/Units 10:45 10:45 10:45 WBC 9.17 (4.0-11.0) K/uL RBC 5.52 (4.50-5.90) M/uL Hgb 18.4 H (13.0-17.0) g/dL Hct 52.7 H (38.0-50.0) % MCV 95.5 (80.0-98.0) fL MCH 33.3 H (27.0-32.0) pg MCHC 34.9 (31.0-37.0) g/dL RDW Std Deviation 46.0 (28.0-62.0) fl RDW Coeff of Elly 13 (11.0-15.0) % Plt Count 202 (150-400) K/uL MPV 11.60 (7.40-12.00) fL Add Manual Diff YES Neutrophils % (Manual) 28 L (48.0-80.0) % Band Neutrophils % 1 % Lymphocytes % (Manual) 37 (16.0-40.0) % Monocytes % (Manual) 8 (0.0-15.0) % Eosinophils % (Manual) 25 H (0.0-7.0) % Basophils % (Manual) 1 (0.0-1.5) % Nucleated RBC % 0.0 /100WBC Absolute Seg Neuts 2.6 (1.4-5.7) Band Neutrophils # 0.1 Lymphocytes # (Manual) 3.4 H (0.6-2.4) Monocytes # (Manual) 0.7 (0.0-0.8) Eosinophils # (Manual) 2.3 H (0.0-0.7) Basophils # (Manual) 0.1 (0.0-0.1) Nucleated RBCs # 0 K/uL ABG pH (7.35-7.45) ABG pCO2 (35-45) mmHG ABG pO2 (75-100) mmHG ABG HCO3 (22-26) mEq/L ABG Total CO2 ABG Base Excess (-2.0-2.0) Lactate 2.6 H* (0.20-2.00) mmol/L Sodium 138 (136-148) mmol/L Potassium 4.4 (3.5-5.1) mmol/L Chloride 103 (98-107) mmol/L Carbon Dioxide 27.4 (21.0-32.0) mmol/L BUN 13 (7.0-18.0) mg/dL Creatinine 1.3 (0.8-1.3) mg/dL Est Cr Clr Drug Dosing 58.49 mL/min Estimated GFR (MDRD) 55.4 ml/min Glucose 162 H (74-106) mg/dL Calcium 8.7 (8.5-10.1) mg/dL Magnesium 2.1 (1.8-2.4) mg/dL Total Bilirubin 1.0 (0.2-1.0) mg/dL AST 24 (15-37) IU/L ALT 33 (14-63) IU/L Alkaline Phosphatase 112 (46-116) U/L Troponin I < 0.050 (0.000-0.056) ng/mL B-Natriuretic Peptide (<100) PG/ML Total Protein 7.6 (6.4-8.2) g/dL Albumin 3.9 (3.4-5.0) g/dL Globulin 3.7 (2.6-4.0) g/dL Albumin/Globulin Ratio 1.1 (0.9-1.6) SARS-CoV-2 RNA (MALENA) (NEGATIVE) 05/20/20 05/20/20 05/20/20 Range/Units 10:45 10:50 11:52 WBC (4.0-11.0) K/uL RBC (4.50-5.90) M/uL Hgb (13.0-17.0) g/dL Hct (38.0-50.0) % MCV (80.0-98.0) fL MCH (27.0-32.0) pg MCHC (31.0-37.0) g/dL RDW Std Deviation (28.0-62.0) fl RDW Coeff of Elly (11.0-15.0) % Plt Count (150-400) K/uL MPV (7.40-12.00) fL Add Manual Diff Neutrophils % (Manual) (48.0-80.0) % Band Neutrophils % % Lymphocytes % (Manual) (16.0-40.0) % Monocytes % (Manual) (0.0-15.0) % Eosinophils % (Manual) (0.0-7.0) % Basophils % (Manual) (0.0-1.5) % Nucleated RBC % /100WBC Absolute Seg Neuts (1.4-5.7) Band Neutrophils # Lymphocytes # (Manual) (0.6-2.4) Monocytes # (Manual) (0.0-0.8) Eosinophils # (Manual) (0.0-0.7) Basophils # (Manual) (0.0-0.1) Nucleated RBCs # K/uL ABG pH 7.262 L (7.35-7.45) ABG pCO2 60 H (35-45) mmHG ABG pO2 223 H (75-100) mmHG ABG HCO3 27 H (22-26) mEq/L ABG Total CO2 23.5 ABG Base Excess -1.9 (-2.0-2.0) Lactate (0.20-2.00) mmol/L Sodium (136-148) mmol/L Potassium (3.5-5.1) mmol/L Chloride (98-107) mmol/L Carbon Dioxide (21.0-32.0) mmol/L BUN (7.0-18.0) mg/dL Creatinine (0.8-1.3) mg/dL Est Cr Clr Drug Dosing mL/min Estimated GFR (MDRD) ml/min Glucose (74-106) mg/dL Calcium (8.5-10.1) mg/dL Magnesium (1.8-2.4) mg/dL Total Bilirubin (0.2-1.0) mg/dL AST (15-37) IU/L ALT (14-63) IU/L Alkaline Phosphatase (46-116) U/L Troponin I (0.000-0.056) ng/mL B-Natriuretic Peptide 73 (<100) PG/ML Total Protein (6.4-8.2) g/dL Albumin (3.4-5.0) g/dL Globulin (2.6-4.0) g/dL Albumin/Globulin Ratio (0.9-1.6) SARS-CoV-2 RNA (MALENA) NEGATIVE (NEGATIVE) 05/20/20 Range/Units 12:46 WBC (4.0-11.0) K/uL RBC (4.50-5.90) M/uL Hgb (13.0-17.0) g/dL Hct (38.0-50.0) % MCV (80.0-98.0) fL MCH (27.0-32.0) pg MCHC (31.0-37.0) g/dL RDW Std Deviation (28.0-62.0) fl RDW Coeff of Elly (11.0-15.0) % Plt Count (150-400) K/uL MPV (7.40-12.00) fL Add Manual Diff Neutrophils % (Manual) (48.0-80.0) % Band Neutrophils % % Lymphocytes % (Manual) (16.0-40.0) % Monocytes % (Manual) (0.0-15.0) % Eosinophils % (Manual) (0.0-7.0) % Basophils % (Manual) (0.0-1.5) % Nucleated RBC % /100WBC Absolute Seg Neuts (1.4-5.7) Band Neutrophils # Lymphocytes # (Manual) (0.6-2.4) Monocytes # (Manual) (0.0-0.8) Eosinophils # (Manual) (0.0-0.7) Basophils # (Manual) (0.0-0.1) Nucleated RBCs # K/uL ABG pH 7.318 L (7.35-7.45) ABG pCO2 49 H (35-45) mmHG ABG pO2 79 (75-100) mmHG ABG HCO3 25 (22-26) mEq/L ABG Total CO2 22.0 ABG Base Excess -1.7 (-2.0-2.0) Lactate (0.20-2.00) mmol/L Sodium (136-148) mmol/L Potassium (3.5-5.1) mmol/L Chloride (98-107) mmol/L Carbon Dioxide (21.0-32.0) mmol/L BUN (7.0-18.0) mg/dL Creatinine (0.8-1.3) mg/dL Est Cr Clr Drug Dosing mL/min Estimated GFR (MDRD) ml/min Glucose (74-106) mg/dL Calcium (8.5-10.1) mg/dL Magnesium (1.8-2.4) mg/dL Total Bilirubin (0.2-1.0) mg/dL AST (15-37) IU/L ALT (14-63) IU/L Alkaline Phosphatase (46-116) U/L Troponin I (0.000-0.056) ng/mL B-Natriuretic Peptide (<100) PG/ML Total Protein (6.4-8.2) g/dL Albumin (3.4-5.0) g/dL Globulin (2.6-4.0) g/dL Albumin/Globulin Ratio (0.9-1.6) SARS-CoV-2 RNA (MALENA) (NEGATIVE) Result Diagrams: 05/21/20 03:40 05/21/20 03:40 Sepsis Event Note - Evaluation Sepsis Screening Result: No Definite Risk - Focused Exam Vital Signs: Vital Signs Temp Pulse Resp BP BP Pulse Ox 05/20/20 11:46 199/94 H 05/20/20 10:48 36.3 C 124 H 30 H 199/94 H 64 L Problem List Initiated/Reviewed/Updated: Yes Orders Last 24hrs: Active Orders 24 hr Category Date Time Status Patient Status [ADT] Routine ADT 05/20/20 13:19 Active BIPAP Adult [RT BiPAP/CPAP] [RC] ASDIRECTED Care 05/20/20 11:26 Active Cardiac Monitoring [RC] . DIRECTED Care 05/20/20 10:44 Active EKG Documentation Completion [RC] STAT Care 05/20/20 10:44 Active Pulse Oximetry [RC] ASDIRECTED Care 05/20/20 10:44 Active CULTURE BLOOD [BC] Stat Lab 05/20/20 10:45 Received CULTURE BLOOD [BC] Stat Lab 05/20/20 11:06 Received UA W/SAEED RFLX IF INDICATED [URIN] Stat Lab 05/20/20 10:45 Ordered Azithromycin [Zithromax] 500 mg Med 05/21/20 09:00 Ordered Sodium Chloride 0.9% [Normal Saline (AdvBag)] 250 ml IV DAILY Azithromycin [Zithromax] 500 mg Med 05/20/20 11:00 Active Sodium Chloride 0.9% [Normal Saline (AdvBag)] 250 ml IV ONETIME Sodium Chloride 0.9% [Saline Flush] Med 05/20/20 10:44 Active 10 ml FLUSH ASDIRECTED PRN Sodium Chloride 0.9% [Saline Flush] Med 05/20/20 10:44 Active 2.5 ml FLUSH ASDIRECTED PRN cefTRIAXone [Rocephin] 1 gm Med 05/20/20 14:00 Ordered Sodium Chloride 0.9% [Normal Saline] 50 ml IV Q24H Blood Culture x2 Reflex Set [OM.PC] Stat Oth 05/20/20 10:45 Ordered Saline Lock Insert [OM.PC] Stat Oth 05/20/20 10:44 Ordered Medication Orders Azithromycin 500 mg/ Sodium (Chloride) 250 mls @ 250 mls/hr IV ONETIME [facility] Last Admin: 05/20/20 12:37 Dose: 250 mls/hr Documented by: DREA Ceftriaxone Sodium 1 gm/ (Sodium Chloride) 50 mls @ 100 mls/hr IV Q24H [facility] Azithromycin 500 mg/ Sodium (Chloride) 250 mls @ 250 mls/hr IV DAILY [facility] Sodium Chloride (Sodium Chloride 0.9% 10 Ml Syringe) 10 ml FLUSH ASDIRECTED PRN PRN Reason: Keep Vein Open Last Admin: 05/20/20 11:38 Dose: 10 ml Documented by: DREA Sodium Chloride (Sodium Chloride 0.9% 2.5 Ml Syringe) 2.5 ml FLUSH ASDIRECTED P RN PRN Reason: Keep Vein Open Last Admin: 05/20/20 11:38 Dose: 2.5 ml Documented by: HANSMAC Assessment/Plan Comment:: 64 yo male admitted for COPD exacerbation Acute on hypoxic/hypercapnic respiratory failure: continue BIPAP, wean as tolerated COPD exacerbation: keithol, moisés, patient has received Rocephin and azithromycin
[2020-05-20] MEDS ORDERED: Ibuprofen 200 MG Tab PO PRN (14:12)
[2020-05-20] MEDS ORDERED: Acetaminophen 325 MG Tab PO PRN (14:12)
[2020-05-20] MEDS: cefTRIAXone 1 GM in Sodium Chloride 0.9% 50 ML IV SCH (15:19)
[2020-05-20] MEDS ORDERED: SUMAtriptan 50 MG Tab PO PRN (15:32)
[2020-05-20] MEDS: Enoxaparin 40 MG/0.4 ML Syringe SUBCUT SCH (15:33)
[2020-05-20] MEDS ORDERED: Ondansetron 4 MG/2 ML SDV IVPUSH PRN (15:46)
--- NOTE | 2020-05-20 15:50 | PN ---
THC Physician - Brief Progress [id number]/07/2021 15:49[facility] Guera [place], [place] - SARIAHN (CINDY) - OBED ROLF PEÑADoryDate of Service 05/20/2020 15:49HPI/Events of Note eICU Admission [id number] admitted for respiratory failure attributed to AECOPD. History obtain ed from review of EMR.Camera exam: Sitting up in bed. Vitals monitor reviewed. eICU Recommendations:N IV as needed for work of breathing and hypercapnia, suggest trending ABG to assess progression of res piratory statusCorticosteroids: on 125mg q12h, could potentially reduce this dose, defer to primary s ervice (we are available to assist as desired)Continue antibioticsScheduled bronchodilatorsIV fluids to target euvolemia, continue to trend lactate until normalizedDVT and GI prophylaxis as appropriate. Thank you for allowing us to participate in the care of this patient.Unless otherwise specified, defe r implementation of above recommendations to discretion of bedside provider. Please do not hesitate t o contact the eICU service for questions, clarification, or assistance with implementation.The above note transcribed with the assistance of dictation software. Please excuse any errors.Interventions Sammy shetty-Respiratory failure - evaluation and management
[2020-05-20] MEDS ORDERED: Pantoprazole 40 MG in Sodium Chloride 0.9% 10 ML IV ONE (16:04)
[2020-05-20] MEDS: SUMAtriptan 6 MG/0.5 ML SDV SUBCUT PRN (16:07)
[2020-05-20] MEDS ORDERED: Sodium Chloride 0.9% 500 ML IV SCH (16:15)
[2020-05-20] MEDS: Albuterol/Ipratropium 3.0-0.5 MG/3 ML Neb Soln NEB SCH ×2 (18:32→21:47)
[2020-05-20] MEDS ORDERED: methylPREDNISolone Sodium Succinate 125 MG/2 ML SDV IVPUSH SCH ×2 (19:00→22:00)
[2020-05-20] MEDS ORDERED: Sodium Chloride 0.9% 500 ML IV ONE ×2 (21:08→23:41)
--- NOTE | 2020-05-20 21:15 | PN ---
THC Physician - Brief Progress [id number]/07/2021 21:12[facility] Guera montoya, [place]Y - OBED (CINDY) - OBED PEÑAROLF KayleighDate of Service 05/20/2020 21:12HPI/Events of Note LA went up to 3.7No new symptomsMaking urineBP 124/72 HR 91 92% on 3LNo pain; no new sepsis featuresD/w RN and on video pt is sitting and speaking-Give add on fluid bolus 500 ml NS-Check LA at 2300Has a myeloma diagnosis-? causing LA riseInterventions Major-Sepsis - evaluation and managementI ntermediate-Diagnostic test evaluation 21:1 4
--- NOTE | 2020-05-20 23:44 | PN ---
THC Physician - Brief Progress [id number]/07/2021 23:[address] jan [place], [place] - OBED (CINDY) - ROLF MILLARDDate of Service 05/20/2020 23:42HPI/Events of Note LA 2.7Hydrate 500 ml again and trend LA and get labs earlyD/w RN- not looking overloaded pe r RNInterventions Intermediate-Diagnostic test evaluation
[2020-05-21] MEDS: Albuterol/Ipratropium 3.0-0.5 MG/3 ML Neb Soln NEB SCH ×6 (01:41→23:27)
[2020-05-21 04:03] LABS: BLOOD UREA NITROGEN,BUN 13 mg/dL (7.0-18.0); CHLORIDE,CL 105 mmol/L (98-107); GLUCOSE RANDOM 157 mg/dL (74-106); POTASSIUM,K 4.5 mmol/L (3.5-5.1); SODIUM,NA 141 mmol/L (136-148)
[2020-05-21] MEDS: Polyethylene Glycol 3350 Powder 17 GM Packet PO SCH (09:25)
[2020-05-21] MEDS: Omeprazole 20 MG Cap.CR PO SCH (09:25)
[2020-05-21] MEDS: SUMAtriptan 6 MG/0.5 ML SDV SUBCUT PRN (10:23)
[2020-05-21] MEDS ORDERED: Azithromycin 500 MG in Sodium Chloride 0.9% 250 ML IV SCH (12:00)
--- NOTE | 2020-05-21 12:43 | PCM.PN ---
- General Info Date of Service: 05/21/20 - Review of Systems Systems Review Comment:: breathing has much improved, reports pain on lower ribs when coughing, no fevers. - Patient Data Vitals - Most Recent: Last Vital Signs Temp 36.5 C 05/21/20 09:26 Pulse 84 05/20/20 14:42 Resp 22 H 05/21/20 11:00 BP 137/69 05/21/20 11:00 Pulse Ox 95 05/21/20 11:00 Weight - Most Recent: 86.001 kg I&O - Last 24 Hours: Intake & Output 05/20/20 05/21/20 05/21/20 22:59 06:59 14:59 Intake Total 1310 2036 Output Total 630 1450 Balance 680 586 Lab Results Last 24 Hours: Laboratory Results - last 24 hr 05/20/20 05/20/20 05/20/20 Range/Units 12:46 15:10 17:13 WBC (4.0-11.0) K/uL RBC (4.50-5.90) M/uL Hgb (13.0-17.0) g/dL Hct (38.0-50.0) % MCV (80.0-98.0) fL MCH (27.0-32.0) pg MCHC (31.0-37.0) g/dL RDW Std Deviation (28.0-62.0) fl RDW Coeff of Elly (11.0-15.0) % Plt Count (150-400) K/uL MPV (7.40-12.00) fL Neut % (Auto) (48.0-80.0) % Lymph % (Auto) (16.0-40.0) % [place] % (Auto) (0.0-15.0) % Eos % (Auto) (0.0-7.0) % Baso % (Auto) (0.0-1.5) % Neut # (Auto) (1.4-5.7) K/uL Lymph # (Auto) (0.6-2.4) K/uL [place] # (Auto) (0.0-0.8) K/uL Eos # (Auto) (0.0-0.7) K/uL Baso # (Auto) (0.0-0.1) K/uL Nucleated RBC % /100WBC Nucleated RBCs # K/uL ABG pH 7.318 L (7.35-7.45) ABG pCO2 49 H (35-45) mmHG ABG pO2 79 (75-100) mmHG ABG HCO3 25 (22-26) mEq/L ABG Total CO2 22.0 ABG Base Excess -1.7 (-2.0-2.0) Lactate 2.9 H* (0.20-2.00) mmol/L Sodium (136-148) mmol/L Potassium (3.5-5.1) mmol/L Chloride (98-107) mmol/L Carbon Dioxide (21.0-32.0) mmol/L BUN (7.0-18.0) mg/dL Creatinine (0.8-1.3) mg/dL Est Cr Clr Drug Dosing mL/min Estimated GFR (MDRD) ml/min Glucose (74-106) mg/dL POC Glucose (60-110) mg/dL Calcium (8.5-10.1) mg/dL Urine Color YELLOW Urine Appearance CLEAR Urine pH 5.0 (5.0-8.0) Ur Specific [place] >= 1.030 (1.001-1.035) Urine Protein TRACE H (NEGATIVE) mg/dL Urine Glucose (UA) NEGATIVE (NEGATIVE) mg/dL Urine Ketones 15 H (NEGATIVE) mg/dL Urine Occult Blood NEGATIVE (NEGATIVE) Urine Nitrite NEGATIVE (NEGATIVE) Urine Bilirubin NEGATIVE (NEGATIVE) Urine Urobilinogen 0.2 (<2.0) EU/dL Ur Leukocyte Esterase TRACE H (NEGATIVE) Urine RBC 0-2 (0-2/HPF) Urine WBC 0-2 (0-5/HPF) Ur Epithelial Cells RARE (NONE-FEW) Urine Bacteria FEW (NEGATIVE) 05/20/20 05/20/20 05/20/20 Range/Units 17:58 20:00 23:00 WBC (4.0-11.0) K/uL RBC (4.50-5.90) M/uL Hgb (13.0-17.0) g/dL Hct (38.0-50.0) % MCV (80.0-98.0) fL MCH (27.0-32.0) pg MCHC (31.0-37.0) g/dL RDW Std Deviation (28.0-62.0) fl RDW Coeff of Elly (11.0-15.0) % Plt Count (150-400) K/uL MPV (7.40-12.00) fL Neut % (Auto) (48.0-80.0) % Lymph % (Auto) (16.0-40.0) % [place] % (Auto) (0.0-15.0) % Eos % (Auto) (0.0-7.0) % Baso % (Auto) (0.0-1.5) % Neut # (Auto) (1.4-5.7) K/uL Lymph # (Auto) (0.6-2.4) K/uL [place] # (Auto) (0.0-0.8) K/uL Eos # (Auto) (0.0-0.7) K/uL Baso # (Auto) (0.0-0.1) K/uL Nucleated RBC % /100WBC Nucleated RBCs # K/uL ABG pH (7.35-7.45) ABG pCO2 (35-45) mmHG ABG pO2 (75-100) mmHG ABG HCO3 (22-26) mEq/L ABG Total CO2 ABG Base Excess (-2.0-2.0) Lactate 3.7 H* 2.7 H* (0.20-2.00) mmol/L Sodium (136-148) mmol/L Potassium (3.5-5.1) mmol/L Chloride (98-107) mmol/L Carbon Dioxide (21.0-32.0) mmol/L BUN (7.0-18.0) mg/dL Creatinine (0.8-1.3) mg/dL Est Cr Clr Drug Dosing mL/min Estimated GFR (MDRD) ml/min Glucose (74-106) mg/dL POC Glucose 181 H (60-110) mg/dL Calcium (8.5-10.1) mg/dL Urine Color Urine Appearance Urine pH (5.0-8.0) Ur Specific [place] (1.001-1.035) Urine Protein (NEGATIVE) mg/dL Urine Glucose (UA) (NEGATIVE) mg/dL Urine Ketones (NEGATIVE) mg/dL Urine Occult Blood (NEGATIVE) Urine Nitrite (NEGATIVE) Urine Bilirubin (NEGATIVE) Urine Urobilinogen (<2.0) EU/dL Ur Leukocyte Esterase (NEGATIVE) Urine RBC (0-2/HPF) Urine WBC (0-5/HPF) Ur Epithelial Cells (NONE-FEW) Urine Bacteria (NEGATIVE) 05/21/20 05/21/20 05/21/20 Range/Units 03:40 03:40 03:40 WBC 5.03 (4.0-11.0) K/uL RBC 4.81 (4.50-5.90) M/uL Hgb 15.4 (13.0-17.0) g/dL Hct 45.7 (38.0-50.0) % MCV 95.0 (80.0-98.0) fL MCH 32.0 (27.0-32.0) pg MCHC 33.7 (31.0-37.0) g/dL RDW Std Deviation 45.3 (28.0-62.0) fl RDW Coeff of Elly 13 (11.0-15.0) % Plt Count 160 (150-400) K/uL MPV 11.30 (7.40-12.00) fL Neut % (Auto) 91.4 H (48.0-80.0) % Lymph % (Auto) 7.6 L (16.0-40.0) % [place] % (Auto) 1.0 (0.0-15.0) % Eos % (Auto) 0.0 (0.0-7.0) % Baso % (Auto) 0.0 (0.0-1.5) % Neut # (Auto) 4.6 (1.4-5.7) K/uL Lymph # (Auto) 0.4 L (0.6-2.4) K/uL [place] # (Auto) 0.1 (0.0-0.8) K/uL Eos # (Auto) 0.0 (0.0-0.7) K/uL Baso # (Auto) 0.0 (0.0-0.1) K/uL Nucleated RBC % 0.0 /100WBC Nucleated RBCs # 0 K/uL ABG pH (7.35-7.45) ABG pCO2 (35-45) mmHG ABG pO2 (75-100) mmHG ABG HCO3 (22-26) mEq/L ABG Total CO2 ABG Base Excess (-2.0-2.0) Lactate 1.6 (0.20-2.00) mmol/L Sodium 141 (136-148) mmol/L Potassium 4.5 (3.5-5.1) mmol/L Chloride 105 (98-107) mmol/L Carbon Dioxide 28.0 (21.0-32.0) mmol/L BUN 13 (7.0-18.0) mg/dL Creatinine 1.1 (0.8-1.3) mg/dL Est Cr Clr Drug Dosing 69.13 mL/min Estimated GFR (MDRD) > 60.0 ml/min Glucose 157 H (74-106) mg/dL POC Glucose (60-110) mg/dL Calcium 8.6 (8.5-10.1) mg/dL Urine Color Urine Appearance Urine pH (5.0-8.0) Ur Specific [place] (1.001-1.035) Urine Protein (NEGATIVE) mg/dL Urine Glucose (UA) (NEGATIVE) mg/dL Urine Ketones (NEGATIVE) mg/dL Urine Occult Blood (NEGATIVE) Urine Nitrite (NEGATIVE) Urine Bilirubin (NEGATIVE) Urine Urobilinogen (<2.0) EU/dL Ur Leukocyte Esterase (NEGATIVE) Urine RBC (0-2/HPF) Urine WBC (0-5/HPF) Ur Epithelial Cells (NONE-FEW) Urine Bacteria (NEGATIVE) 05/21/20 Range/Units 09:33 WBC (4.0-11.0) K/uL RBC (4.50-5.90) M/uL Hgb (13.0-17.0) g/dL Hct (38.0-50.0) % MCV (80.0-98.0) fL MCH (27.0-32.0) pg MCHC (31.0-37.0) g/dL RDW Std Deviation (28.0-62.0) fl RDW Coeff of Elly (11.0-15.0) % Plt Count (150-400) K/uL MPV (7.40-12.00) fL Neut % (Auto) (48.0-80.0) % Lymph % (Auto) (16.0-40.0) % [place] % (Auto) (0.0-15.0) % Eos % (Auto) (0.0-7.0) % Baso % (Auto) (0.0-1.5) % Neut # (Auto) (1.4-5.7) K/uL Lymph # (Auto) (0.6-2.4) K/uL [place] # (Auto) (0.0-0.8) K/uL Eos # (Auto) (0.0-0.7) K/uL Baso # (Auto) (0.0-0.1) K/uL Nucleated RBC % /100WBC Nucleated RBCs # K/uL ABG pH (7.35-7.45) ABG pCO2 (35-45) mmHG ABG pO2 (75-100) mmHG ABG HCO3 (22-26) mEq/L ABG Total CO2 ABG Base Excess (-2.0-2.0) Lactate (0.20-2.00) mmol/L Sodium (136-148) mmol/L Potassium (3.5-5.1) mmol/L Chloride (98-107) mmol/L Carbon Dioxide (21.0-32.0) mmol/L BUN (7.0-18.0) mg/dL Creatinine (0.8-1.3) mg/dL Est Cr Clr Drug Dosing mL/min Estimated GFR (MDRD) ml/min Glucose (74-106) mg/dL POC Glucose 146 H (60-110) mg/dL Calcium (8.5-10.1) mg/dL Urine Color Urine Appearance Urine pH (5.0-8.0) Ur Specific [place] (1.001-1.035) Urine Protein (NEGATIVE) mg/dL Urine Glucose (UA) (NEGATIVE) mg/dL Urine Ketones (NEGATIVE) mg/dL Urine Occult Blood (NEGATIVE) Urine Nitrite (NEGATIVE) Urine Bilirubin (NEGATIVE) Urine Urobilinogen (<2.0) EU/dL Ur Leukocyte Esterase (NEGATIVE) Urine RBC (0-2/HPF) Urine WBC (0-5/HPF) Ur Epithelial Cells (NONE-FEW) Urine Bacteria (NEGATIVE) Chris Results Last 24 Hours: Microbiology 05/20/20 11:06 Aerobic Blood Culture - Preliminary Blood - Venous - Lab Draw NO GROWTH AFTER 1 DAY Anaerobic Blood Culture - Preliminary NO GROWTH AFTER 1 DAY 05/20/20 10:45 Aerobic Blood Culture - Preliminary Blood - Venous NO GROWTH AFTER 1 DAY Anaerobic Blood Culture - Preliminary NO GROWTH AFTER 1 DAY Med Orders - Current: Current Medications Acetaminophen (Acetaminophen 325 Mg Tab) 650 mg PO Q4H PRN PRN Reason: Pain (Mild 1-3)/fever Last Admin: 05/21/20 03:43 Dose: 650 mg Documented by: Albuterol/Ipratropium (Albuterol/Ipratropium 3.0-0.5 Mg/3 Ml Neb Soln) 3 ml NEB Q4HRRT [facility] Last Admin: 05/21/20 11:16 Dose: 3 ml Documented by: Enoxaparin Sodium (Enoxaparin 40 Mg/0.4 Ml Syringe) 40 mg SUBCUT Q24H [facility] Last Admin: 05/20/20 15:33 Dose: 40 mg Documented by: Ceftriaxone Sodium 1 gm/ (Sodium Chloride) 50 mls @ 100 mls/hr IV Q24H [facility] Last Admin: 05/20/20 15:19 Dose: Not Given Documented by: Azithromycin 500 mg/ Sodium (Chloride) 250 mls @ 250 mls/hr IV Q24H [facility] Last Admin: 05/21/20 12:01 Dose: 250 mls/hr Documented by: Ibuprofen (Ibuprofen 200 Mg Tab) 200 mg PO Q6H PRN PRN Reason: Pain (mild 1-3) Methylprednisolone Sodium Succinate (Methylprednisolone Sodium Succinate 125 Mg/2 Ml Sdv) 125 mg IVPUSH Q24H [facility] Omeprazole (Omeprazole 20 Mg Cap.Cr) 20 mg PO ACBREAKFAST [facility] Last Admin: 05/21/20 09:25 Dose: 20 mg Documented by: Ondansetron HCl (Ondansetron 4 Mg/2 Ml Sdv) 4 mg IVPUSH Q4H PRN PRN Reason: Nausea Last Admin: 05/20/20 16:07 Dose: 4 mg Documented by: Polyethylene Glycol (Polyethylene Glycol 3350 Powder 17 Gm Packet) 17 gm PO DAILY [facility] Last Admin: 05/21/20 09:25 Dose: 17 gm Documented by: Sodium Chloride (Sodium Chloride 0.9% 10 Ml Syringe) 10 ml FLUSH ASDIRECTED PRN PRN Reason: Keep Vein Open Last Admin: 05/20/20 11:38 Dose: 10 ml Documented by: Sodium Chloride (Sodium Chloride 0.9% 2.5 Ml Syringe) 2.5 ml FLUSH ASDIRECTED PRN PRN Reason: Keep Vein Open Last Admin: 05/20/20 11:38 Dose: 2.5 ml Documented by: Discontinued Medications Albuterol/Ipratropium (Albuterol/Ipratropium 3.0-0.5 Mg/3 Ml Neb Soln) 3 ml NEB ONETIME ONE Stop: 05/20/20 10:45 Last Admin: 05/20/20 11:06 Dose: 3 ml Documented by: Clonidine HCl (Clonidine 0.1 Mg Tab) 0.1 mg PO ONETIME ONE Stop: 05/20/20 11:33 Last Admin: 05/20/20 11:46 Dose: 0.1 mg Documented by: Diltiazem HCl (Diltiazem 25 Mg/5 Ml Sdv) 25 mg IVPUSH ONETIME ONE Stop: 05/20/20 11:31 Last Admin: 05/20/20 11:46 Dose: Not Given Documented by: Magnesium Sulfate 2 gm/ Premix 50 mls @ 50 mls/hr IV ONETIME ONE Stop: 05/20/20 11:44 Last Admin: 05/20/20 11:38 Dose: 50 mls/hr Documented by: Sodium Chloride (Normal Saline) 1,000 mls @ 999 mls/hr IV .Bolus ONE Stop: 05/20/20 11:46 Last Admin: 05/20/20 11:43 Dose: 999 mls/hr Documented by: Ceftriaxone Sodium/Dextrose 1 (gm/ Premix) 50 mls @ 100 mls/hr IV ONETIME ONE Stop: 05/20/20 11:17 Last Admin: 05/20/20 11:38 Dose: 100 mls/hr Documented by: Azithromycin 500 mg/ Sodium (Chloride) 250 mls @ 250 mls/hr IV ONETIME [place] Last Admin: 05/20/20 12:37 Dose: 250 mls/hr Documented by: Pantoprazole Sodium 40 mg/ (Sodium Chloride) 10 mls @ 300 mls/hr IV NOW ONE Stop: 05/20/20 16:05 Last Admin: 05/20/20 16:22 Dose: 300 mls/hr Documented by: Sodium Chloride (Normal Saline) 500 mls @ 999 mls/hr IV .BOLUS [place] Last Admin: 05/20/20 16:23 Dose: 999 mls/hr Documented by: Sodium Chloride (Normal Saline) 500 mls @ 999 mls/hr IV .BOLUS ONE Stop: 05/20/20 21:38 Last Admin: 05/20/20 21:17 Dose: 999 mls/hr Documented by: Sodium Chloride (Normal Saline) 500 mls @ 999 mls/hr IV .BOLUS ONE Stop: 05/21/20 00:11 Last Admin: 05/20/20 23:51 Dose: 999 mls/hr Documented by: Lorazepam (Lorazepam 2 Mg/Ml Sdv) 0.5 mg IVPUSH ONETIME ONE Stop: 05/20/20 10:47 Last Admin: 05/20/20 11:43 Dose: 0.5 mg Documented by: Methylprednisolone Sodium Succinate (Methylprednisolone Sodium Succinate 125 Mg/2 Ml Sdv) 125 mg IVPUSH ONETIME ONE Stop: 05/20/20 10:45 Last Admin: 05/20/20 11:36 Dose: 125 mg Documented by: Methylprednisolone Sodium Succinate (Methylprednisolone Sodium Succinate 125 Mg/2 Ml Sdv) 125 mg IVPUSH Q12H [facility] Last Admin: 05/20/20 19:36 Dose: Not Given Documented by: Methylprednisolone Sodium Succinate (Methylprednisolone Sodium Succinate 125 Mg/2 Ml Sdv) 125 mg IVPUSH Q12H [facility] Last Admin: 05/20/20 21:47 Dose: 125 mg Documented by: Sumatriptan Succinate (Sumatriptan 50 Mg Tab) 50 mg PO Q2H PRN PRN Reason: Headache Sumatriptan Succinate (Sumatriptan 6 Mg/0.5 Ml Sdv) 6 mg SUBCUT Q2H PRN PRN Reason: Headache Last Admin: 05/21/20 10:23 Dose: 6 mg Documented by: Terbutaline Sulfate (Terbutaline 1 Mg/Ml Sdv) 0.25 mg SUBCUT ONETIME ONE Stop: 05/20/20 10:46 Last Admin: 05/20/20 12:40 Dose: 0.25 mg Documented by: Terbutaline Sulfate (Terbutaline 1 Mg/Ml Sdv) 0.25 mg SUBCUT ONETIME ONE Stop: 05/20/20 12:01 Last Admin: 05/20/20 12:40 Dose: Not Given Documented by: - Exam General: Alert, Oriented Neck: Supple Lungs: Normal Respiratory Effort, Decreased Breath Sounds Cardiovascular: Regular Rate, Regular Rhythm GI/Abdominal Exam: Normal Bowel Sounds, Soft, Non-Tender, No Distention Extremities: Non-Tender, No Pedal Edema Skin: Warm, Dry, Intact Neurological: No New Focal Deficit - Patient Data Lab Results Last 24 hrs: Laboratory Results - last 24 hr 05/20/20 05/20/20 05/20/20 Range/Units 12:46 15:10 17:13 WBC (4.0-11.0) K/uL RBC (4.50-5.90) M/uL Hgb (13.0-17.0) g/dL Hct (38.0-50.0) % MCV (80.0-98.0) fL MCH (27.0-32.0) pg MCHC (31.0-37.0) g/dL RDW Std Deviation (28.0-62.0) fl RDW Coeff of Elly (11.0-15.0) % Plt Count (150-400) K/uL MPV (7.40-12.00) fL Neut % (Auto) (48.0-80.0) % Lymph % (Auto) (16.0-40.0) % [place] % (Auto) (0.0-15.0) % Eos % (Auto) (0.0-7.0) % Baso % (Auto) (0.0-1.5) % Neut # (Auto) (1.4-5.7) K/uL Lymph # (Auto) (0.6-2.4) K/uL [place] # (Auto) (0.0-0.8) K/uL Eos # (Auto) (0.0-0.7) K/uL Baso # (Auto) (0.0-0.1) K/uL Nucleated RBC % /100WBC Nucleated RBCs # K/uL ABG pH 7.318 L (7.35-7.45) ABG pCO2 49 H (35-45) mmHG ABG pO2 79 (75-100) mmHG ABG HCO3 25 (22-26) mEq/L ABG Total CO2 22.0 ABG Base Excess -1.7 (-2.0-2.0) Lactate 2.9 H* (0.20-2.00) mmol/L Sodium (136-148) mmol/L Potassium (3.5-5.1) mmol/L Chloride (98-107) mmol/L Carbon Dioxide (21.0-32.0) mmol/L BUN (7.0-18.0) mg/dL Creatinine (0.8-1.3) mg/dL Est Cr Clr Drug Dosing mL/min Estimated GFR (MDRD) ml/min Glucose (74-106) mg/dL POC Glucose (60-110) mg/dL Calcium (8.5-10.1) mg/dL Urine Color YELLOW Urine Appearance CLEAR Urine pH 5.0 (5.0-8.0) Ur Specific [place] >= 1.030 (1.001-1.035) Urine Protein TRACE H (NEGATIVE) mg/dL Urine Glucose (UA) NEGATIVE (NEGATIVE) mg/dL Urine Ketones 15 H (NEGATIVE) mg/dL Urine Occult Blood NEGATIVE (NEGATIVE) Urine Nitrite NEGATIVE (NEGATIVE) Urine Bilirubin NEGATIVE (NEGATIVE) Urine Urobilinogen 0.2 (<2.0) EU/dL Ur Leukocyte Esterase TRACE H (NEGATIVE) Urine RBC 0-2 (0-2/HPF) Urine WBC 0-2 (0-5/HPF) Ur Epithelial Cells RARE (NONE-FEW) Urine Bacteria FEW (NEGATIVE) 05/20/20 05/20/20 05/20/20 Range/Units 17:58 20:00 23:00 WBC (4.0-11.0) K/uL RBC (4.50-5.90) M/uL Hgb (13.0-17.0) g/dL Hct (38.0-50.0) % MCV (80.0-98.0) fL MCH (27.0-32.0) pg MCHC (31.0-37.0) g/dL RDW Std Deviation (28.0-62.0) fl RDW Coeff of Elly (11.0-15.0) % Plt Count (150-400) K/uL MPV (7.40-12.00) fL Neut % (Auto) (48.0-80.0) % Lymph % (Auto) (16.0-40.0) % [place] % (Auto) (0.0-15.0) % Eos % (Auto) (0.0-7.0) % Baso % (Auto) (0.0-1.5) % Neut # (Auto) (1.4-5.7) K/uL Lymph # (Auto) (0.6-2.4) K/uL [place] # (Auto) (0.0-0.8) K/uL Eos # (Auto) (0.0-0.7) K/uL Baso # (Auto) (0.0-0.1) K/uL Nucleated RBC % /100WBC Nucleated RBCs # K/uL ABG pH (7.35-7.45) ABG pCO2 (35-45) mmHG ABG pO2 (75-100) mmHG ABG HCO3 (22-26) mEq/L ABG Total CO2 ABG Base Excess (-2.0-2.0) Lactate 3.7 H* 2.7 H* (0.20-2.00) mmol/L Sodium (136-148) mmol/L Potassium (3.5-5.1) mmol/L Chloride (98-107) mmol/L Carbon Dioxide (21.0-32.0) mmol/L BUN (7.0-18.0) mg/dL Creatinine (0.8-1.3) mg/dL Est Cr Clr Drug Dosing mL/min Estimated GFR (MDRD) ml/min Glucose (74-106) mg/dL POC Glucose 181 H (60-110) mg/dL Calcium (8.5-10.1) mg/dL Urine Color Urine Appearance Urine pH (5.0-8.0) Ur Specific [place] (1.001-1.035) Urine Protein (NEGATIVE) mg/dL Urine Glucose (UA) (NEGATIVE) mg/dL Urine Ketones (NEGATIVE) mg/dL Urine Occult Blood (NEGATIVE) Urine Nitrite (NEGATIVE) Urine Bilirubin (NEGATIVE) Urine Urobilinogen (<2.0) EU/dL Ur Leukocyte Esterase (NEGATIVE) Urine RBC (0-2/HPF) Urine WBC (0-5/HPF) Ur Epithelial Cells (NONE-FEW) Urine Bacteria (NEGATIVE) 05/21/20 05/21/20 05/21/20 Range/Units 03:40 03:40 03:40 WBC 5.03 (4.0-11.0) K/uL RBC 4.81 (4.50-5.90) M/uL Hgb 15.4 (13.0-17.0) g/dL Hct 45.7 (38.0-50.0) % MCV 95.0 (80.0-98.0) fL MCH 32.0 (27.0-32.0) pg MCHC 33.7 (31.0-37.0) g/dL RDW Std Deviation 45.3 (28.0-62.0) fl RDW Coeff of Elly 13 (11.0-15.0) % Plt Count 160 (150-400) K/uL MPV 11.30 (7.40-12.00) fL Neut % (Auto) 91.4 H (48.0-80.0) % Lymph % (Auto) 7.6 L (16.0-40.0) % [place] % (Auto) 1.0 (0.0-15.0) % Eos % (Auto) 0.0 (0.0-7.0) % Baso % (Auto) 0.0 (0.0-1.5) % Neut # (Auto) 4.6 (1.4-5.7) K/uL Lymph # (Auto) 0.4 L (0.6-2.4) K/uL [place] # (Auto) 0.1 (0.0-0.8) K/uL Eos # (Auto) 0.0 (0.0-0.7) K/uL Baso # (Auto) 0.0 (0.0-0.1) K/uL Nucleated RBC % 0.0 /100WBC Nucleated RBCs # 0 K/uL ABG pH (7.35-7.45) ABG pCO2 (35-45) mmHG ABG pO2 (75-100) mmHG ABG HCO3 (22-26) mEq/L ABG Total CO2 ABG Base Excess (-2.0-2.0) Lactate 1.6 (0.20-2.00) mmol/L Sodium 141 (136-148) mmol/L Potassium 4.5 (3.5-5.1) mmol/L Chloride 105 (98-107) mmol/L Carbon Dioxide 28.0 (21.0-32.0) mmol/L BUN 13 (7.0-18.0) mg/dL Creatinine 1.1 (0.8-1.3) mg/dL Est Cr Clr Drug Dosing 69.13 mL/min Estimated GFR (MDRD) > 60.0 ml/min Glucose 157 H (74-106) mg/dL POC Glucose (60-110) mg/dL Calcium 8.6 (8.5-10.1) mg/dL Urine Color Urine Appearance Urine pH (5.0-8.0) Ur Specific [place] (1.001-1.035) Urine Protein (NEGATIVE) mg/dL Urine Glucose (UA) (NEGATIVE) mg/dL Urine Ketones (NEGATIVE) mg/dL Urine Occult Blood (NEGATIVE) Urine Nitrite (NEGATIVE) Urine Bilirubin (NEGATIVE) Urine Urobilinogen (<2.0) EU/dL Ur Leukocyte Esterase (NEGATIVE) Urine RBC (0-2/HPF) Urine WBC (0-5/HPF) Ur Epithelial Cells (NONE-FEW) Urine Bacteria (NEGATIVE) 05/21/20 Range/Units 09:33 WBC (4.0-11.0) K/uL RBC (4.50-5.90) M/uL Hgb (13.0-17.0) g/dL Hct (38.0-50.0) % MCV (80.0-98.0) fL MCH (27.0-32.0) pg MCHC (31.0-37.0) g/dL RDW Std Deviation (28.0-62.0) fl RDW Coeff of Elly (11.0-15.0) % Plt Count (150-400) K/uL MPV (7.40-12.00) fL Neut % (Auto) (48.0-80.0) % Lymph % (Auto) (16.0-40.0) % [place] % (Auto) (0.0-15.0) % Eos % (Auto) (0.0-7.0) % Baso % (Auto) (0.0-1.5) % Neut # (Auto) (1.4-5.7) K/uL Lymph # (Auto) (0.6-2.4) K/uL [place] # (Auto) (0.0-0.8) K/uL Eos # (Auto) (0.0-0.7) K/uL Baso # (Auto) (0.0-0.1) K/uL Nucleated RBC % /100WBC Nucleated RBCs # K/uL ABG pH (7.35-7.45) ABG pCO2 (35-45) mmHG ABG pO2 (75-100) mmHG ABG HCO3 (22-26) mEq/L ABG Total CO2 ABG Base Excess (-2.0-2.0) Lactate (0.20-2.00) mmol/L Sodium (136-148) mmol/L Potassium (3.5-5.1) mmol/L Chloride (98-107) mmol/L Carbon Dioxide (21.0-32.0) mmol/L BUN (7.0-18.0) mg/dL Creatinine (0.8-1.3) mg/dL Est Cr Clr Drug Dosing mL/min Estimated GFR (MDRD) ml/min Glucose (74-106) mg/dL POC Glucose 146 H (60-110) mg/dL Calcium (8.5-10.1) mg/dL Urine Color Urine Appearance Urine pH (5.0-8.0) Ur Specific [place] (1.001-1.035) Urine Protein (NEGATIVE) mg/dL Urine Glucose (UA) (NEGATIVE) mg/dL Urine Ketones (NEGATIVE) mg/dL Urine Occult Blood (NEGATIVE) Urine Nitrite (NEGATIVE) Urine Bilirubin (NEGATIVE) Urine Urobilinogen (<2.0) EU/dL Ur Leukocyte Esterase (NEGATIVE) Urine RBC (0-2/HPF) Urine WBC (0-5/HPF) Ur Epithelial Cells (NONE-FEW) Urine Bacteria (NEGATIVE) Result Diagrams: 05/21/20 03:40 05/21/20 03:40 Chris Results Last 24 hrs: Microbiology 05/20/20 11:06 Aerobic Blood Culture - Preliminary Blood - Venous - Lab Draw NO GROWTH AFTER 1 DAY Anaerobic Blood Culture - Preliminary NO GROWTH AFTER 1 DAY 05/20/20 10:45 Aerobic Blood Culture - Preliminary Blood - Venous NO GROWTH AFTER 1 DAY Anaerobic Blood Culture - Preliminary NO GROWTH AFTER 1 DAY Sepsis Event Note - Evaluation Sepsis Screening Result: No Definite Risk - Focused Exam Vital Signs: Vital Signs Temp Resp BP Pulse Ox Pulse Ox 05/21/20 11:00 22 H 137/69 95 05/21/20 10:00 15 130/68 92 L 05/21/20 09:26 36.5 C 20 94/60 97 05/21/20 08:00 16 128/76 90 L 05/21/20 07:00 23 H 109/52 L 95 05/21/20 06:18 94 L 05/21/20 06:00 19 98/54 L 94 L 05/21/20 05:00 20 108/60 97 05/21/20 04:00 36.8 C 24 H 125/77 92 L 05/21/20 03:00 17 115/58 L 95 05/21/20 02:00 23 H 113/77 90 L 05/21/20 01:00 22 H 103/53 L 94 L - Problem List Review Problem List Initiated/Reviewed/Updated: Yes - My Orders Last 24 Hours: My Active Orders 05/20/20 14:00 cefTRIAXone [Rocephin] 1 gm Sodium Chloride 0.9% [Normal Saline] 50 ml IV Q24H 05/20/20 14:12 Blood Glucose Check, Bedside [RC] TIDMEALS Oxygen Therapy [RC] PRN VTE/DVT Education [RC] PER UNIT ROUTINE Vital Signs [RC] Q1H Acetaminophen [TylenoL] 650 mg PO Q4H PRN Ibuprofen [Motrin] 200 mg PO Q6H PRN Resuscitation Status Routine 05/20/20 14:13 Antiembolic Devices [RC] PER UNIT ROUTINE Sequential Compression Device [OM.PC] Per Unit Routine 05/20/20 14:14 RT Aerosol Therapy [RC] ASDIRECTED 05/20/20 14:15 Enoxaparin [Lovenox] 40 mg SUBCUT Q24H 05/20/20 18:00 Albuterol/Ipratropium [DuoNeb 3.0-0.5 MG/3 ML] 3 ml NEB Q4HRRT 05/21/20 07:30 Omeprazole 20 mg PO ACBREAKFAST 05/21/20 09:00 polyethylene glycoL 3350 [MiraLAX] 17 gm PO DAILY 05/21/20 12:00 Azithromycin [Zithromax] 500 mg Sodium Chloride 0.9% [Normal Saline (AdvBag)] 250 ml IV Q24H 05/21/20 12:40 Transfer Patient (Change bed) [ADT] Routine Obtain Past Medical Record [OM.PC] Routine 05/21/20 15:00 methylPREDNISolone Sod Succ [Solu-MEDROL] 125 mg IVPUSH Q24H 05/22/20 05:11 BASIC METABOLIC PANEL,BMP [CHEM] AM CBC WITH AUTO DIFF [HEME] AM MAGNESIUM [CHEM] AM - Plan Plan:: 64 yo male admitted for COPD exacerbation Acute on hypoxic/hypercapnic respiratory failure: patient weaned off oxygen. Will transfer to medical floor COPD exacerbation: solumedrol, duonebs, Rocephin, and azithromycin Will obtain medical records from [facility].
[2020-05-21] MEDS ORDERED: cefTRIAXone 1 GM in Premix Bag 1 BAG IV SCH (14:00)
[2020-05-21] MEDS: Enoxaparin 40 MG/0.4 ML Syringe SUBCUT SCH (14:08)
[2020-05-21] MEDS: cefTRIAXone 1 GM in Sodium Chloride 0.9% 50 ML IV SCH (14:31)
[2020-05-21] MEDS ORDERED: methylPREDNISolone Sodium Succinate 125 MG/2 ML SDV IVPUSH SCH (15:00)
[2020-05-21] MEDS ORDERED: Codeine/guaiFENesin 10-100 MG/5 ML Syrup 5 ML Cup PO PRN (19:17)
[2020-05-22] MEDS: Albuterol/Ipratropium 3.0-0.5 MG/3 ML Neb Soln NEB SCH ×2 (02:11→06:07)
[2020-05-22 05:42] LABS: CARBON DIOXIDE,CO2 29.4 mmol/L (21.0-32.0); POTASSIUM,K 4.4 mmol/L (3.5-5.1)
[2020-05-22] MEDS: Omeprazole 20 MG Cap.CR PO SCH (06:49)
--- NOTE | 2020-05-22 07:51 | PCM.DCSUM1 ---
Discharge Summary - Discharge Data Discharge Date: 05/22/20 Discharge Disposition: Home, Self-Care 01 Condition: Good - Referral to Home Health Primary Care Physician: Vasquez Lala MD - Patient Summary/Data Hospital Course: 64 yo male admitted for COPD exacerbation when he presented with a several day history of increasing shortness of breath, wheezing and cough In the ED p atient was noted to be in respiratory distress sating in the 80s. He was placed on BIPAP and given solumedrol and duonebs. Patient was given Ativan to help with breathing with BIPAP. He was also given clonidine for elevated BP as well as Rocephin and Azithromycin for possible respiratory infection. Patient was admitted to the ICU but quickly weaned of the BIPAP and the following day was wean off nasal canula. Today he is requesting discharge home. He was discharged home with four more days of Azithromycin and prednisone. Patient is to follow up with Dr. Lala. - Patient Instructions Diet: Usual Diet as Tolerated Activity: As Tolerated Notify Provider of: Fever, Increased Pain, Nausea and/or Vomiting - Discharge Plan Prescriptions/Med Rec: Azithromycin 500 mg PO DAILY #4 tablet predniSONE [Prednisone] 50 mg PO DAILY #4 tablet Home Medications: Home Meds Albuterol Sulfate [Proair Digihaler] 2 puff IH QID PRN 02/15/20 [History] Albuterol/Ipratropium [Combivent Respimat] 1 inh INH QID 02/15/20 [History] Aspirin [Aspirin EC] 81 mg PO DAILY 02/15/20 [History] Budesonide/Formoterol Fumarate [Budesonide-Formoterol 80-4.5] 2 puff IH BID 02/15/20 [History] Celecoxib 200 mg PO DAILY PRN 02/15/20 [History] Magnesium Oxide [Mag-Oxide] 400 mg PO BEDTIME PRN 02/15/20 [History] Omeprazole 20 mg PO ACBREAKFAST 02/15/20 [History] polyethylene glycoL 3350 [Polyethylene Glycol 3350] 17 gm PO DAILY 02/15/20 [History] valACYclovir HCl [valACYclovir] 1,000 mg PO DAILY 02/15/20 [History] Azithromycin 500 mg PO DAILY #4 tablet 05/22/20 [Rx] predniSONE [Prednisone] 50 mg PO DAILY #4 tablet 05/22/20 [Rx] Forms: ED Department Discharge Referrals: Vasquez Lala MD [Primary Care Provider] - - Discharge Summary/Plan Comment DC Time >30 min.: No - Patient Data Vitals - Most Recent: Last Vital Signs Temp 36.5 C 05/22/20 07:46 Pulse 80 05/22/20 04:00 Resp 16 05/22/20 07:46 BP 136/85 05/22/20 07:46 Pulse Ox 94 L 05/22/20 07:46 Weight - Most Recent: 86.001 kg I&O - Last 24 hours: Intake & Output 05/21/20 05/22/20 05/22/20 22:59 06:59 14:59 Intake Total 1140 400 Output Total 2000 0 Balance -860 400 Lab Results - Last 24 hrs: Laboratory Results - last 24 hr 05/21/20 05/21/20 05/22/20 Range/Units 09:33 14:11 04:47 WBC 13.97 H (4.0-11.0) K/uL RBC 5.03 (4.50-5.90) M/uL Hgb 16.3 (13.0-17.0) g/dL Hct 48.2 (38.0-50.0) % MCV 95.8 (80.0-98.0) fL MCH 32.4 H (27.0-32.0) pg MCHC 33.8 (31.0-37.0) g/dL RDW Std Deviation 46.7 (28.0-62.0) fl RDW Coeff of Elly 13 (11.0-15.0) % Plt Count 181 (150-400) K/uL MPV 11.70 (7.40-12.00) fL Neut % (Auto) 89.6 H (48.0-80.0) % Lymph % (Auto) 5.0 L (16.0-40.0) % Sevier % (Auto) 5.3 (0.0-15.0) % Eos % (Auto) 0.0 (0.0-7.0) % Baso % (Auto) 0.1 (0.0-1.5) % Neut # (Auto) 12.5 H (1.4-5.7) K/uL Lymph # (Auto) 0.7 (0.6-2.4) K/uL Se[place] # (Auto) 0.7 (0.0-0.8) K/uL Eos # (Auto) 0.0 (0.0-0.7) K/uL Baso # (Auto) 0.0 (0.0-0.1) K/uL Nucleated RBC % 0.0 /100WBC Nucleated RBCs # 0 K/uL Sodium (136-148) mmol/L Potassium (3.5-5.1) mmol/L Chloride (98-107) mmol/L Carbon Dioxide (21.0-32.0) mmol/L BUN (7.0-18.0) mg/dL Creatinine (0.8-1.3) mg/dL Est Cr Clr Drug Dosing mL/min Estimated GFR (MDRD) ml/min Glucose (74-106) mg/dL POC Glucose 146 H 138 H (60-110) mg/dL Calcium (8.5-10.1) mg/dL Magnesium (1.8-2.4) mg/dL 05/22/20 05/22/20 Range/Units 04:47 06:51 WBC (4.0-11.0) K/uL RBC (4.50-5.90) M/uL Hgb (13.0-17.0) g/dL Hct (38.0-50.0) % MCV (80.0-98.0) fL MCH (27.0-32.0) pg MCHC (31.0-37.0) g/dL RDW Std Deviation (28.0-62.0) fl RDW Coeff of Elly (11.0-15.0) % Plt Count (150-400) K/uL MPV (7.40-12.00) fL Neut % (Auto) (48.0-80.0) % Lymph % (Auto) (16.0-40.0) % Sevier % (Auto) (0.0-15.0) % Eos % (Auto) (0.0-7.0) % Baso % (Auto) (0.0-1.5) % Neut # (Auto) (1.4-5.7) K/uL Lymph # (Auto) (0.6-2.4) K/uL Sevier # (Auto) (0.0-0.8) K/uL Eos # (Auto) (0.0-0.7) K/uL Baso # (Auto) (0.0-0.1) K/uL Nucleated RBC % /100WBC Nucleated RBCs # K/uL Sodium 144 (136-148) mmol/L Potassium 4.4 (3.5-5.1) mmol/L Chloride 106 (98-107) mmol/L Carbon Dioxide 29.4 (21.0-32.0) mmol/L BUN 19 H (7.0-18.0) mg/dL Creatinine 1.3 (0.8-1.3) mg/dL Est Cr Clr Drug Dosing 58.49 mL/min Estimated GFR (MDRD) 55.4 ml/min Glucose 127 H (74-106) mg/dL POC Glucose 118 H (60-110) mg/dL Calcium 9.2 (8.5-10.1) mg/dL Magnesium 2.5 H (1.8-2.4) mg/dL SAEED Results - Last 24 hrs: Microbiology 05/20/20 11:06 Aerobic Blood Culture - Preliminary Blood - Venous - Lab Draw NO GROWTH AFTER 1 DAY Anaerobic Blood Culture - Preliminary NO GROWTH AFTER 1 DAY 05/20/20 10:45 Aerobic Blood Culture - Preliminary Blood - Venous NO GROWTH AFTER 1 DAY Anaerobic Blood Culture - Preliminary NO GROWTH AFTER 1 DAY Med Orders - Current: Current Medications Acetaminophen (Acetaminophen 325 Mg Tab) 650 mg PO Q4H PRN PRN Reason: Pain (Mild 1-3)/fever Last Admin: 05/21/20 03:43 Dose: 650 mg Documented by: Albuterol/Ipratropium (Albuterol/Ipratropium 3.0-0.5 Mg/3 Ml Neb Soln) 3 ml NEB Q4HRRT [place] Last Admin: 05/22/20 06:07 Dose: 3 ml Documented by: Enoxaparin Sodium (Enoxaparin 40 Mg/0.4 Ml Syringe) 40 mg SUBCUT Q24H [place] Last Admin: 05/21/20 14:08 Dose: 40 mg Documented by: Guaifenesin/Codeine Phosphate (Codeine/Guaifenesin 10-100 Mg/5 Ml Syrup 5 Ml Cup) 5 ml PO BID PRN PRN Reason: Cough Last Admin: 05/21/20 20:15 Dose: 5 ml Documented by: Azithromycin 500 mg/ Sodium (Chloride) 250 mls @ 250 mls/hr IV Q24H [facility] Last Admin: 05/21/20 12:01 Dose: 250 mls/hr Documented by: Ceftriaxone Sodium/Dextrose 1 (gm/ Premix) 50 mls @ 100 mls/hr IV Q24H [facility] Last Admin: 05/21/20 14:16 Dose: 100 mls/hr Documented by: Ibuprofen (Ibuprofen 200 Mg Tab) 200 mg PO Q6H PRN PRN Reason: Pain (mild 1-3) Methylprednisolone Sodium Succinate (Methylprednisolone Sodium Succinate 125 Mg/2 Ml Sdv) 125 mg IVPUSH Q24H [facility] Last Admin: 05/21/20 15:04 Dose: 125 mg Documented by: Omeprazole (Omeprazole 20 Mg Cap.Cr) 20 mg PO ACBREAKFAST [facility] Last Admin: 05/22/20 06:49 Dose: 20 mg Documented by: Ondansetron HCl (Ondansetron 4 Mg/2 Ml Sdv) 4 mg IVPUSH Q4H PRN PRN Reason: Nausea Last Admin: 05/20/20 16:07 Dose: 4 mg Documented by: Polyethylene Glycol (Polyethylene Glycol 3350 Powder 17 Gm Packet) 17 gm PO DAILY [facility] Last Admin: 05/21/20 09:25 Dose: 17 gm Documented by: Sodium Chloride (Sodium Chloride 0.9% 10 Ml Syringe) 10 ml FLUSH ASDIRECTED PRN PRN Reason: Keep Vein Open Last Admin: 05/20/20 11:38 Dose: 10 ml Documented by: Sodium Chloride (Sodium Chloride 0.9% 2.5 Ml Syringe) 2.5 ml FLUSH ASDIRECTED PRN PRN Reason: Keep Vein Open Last Admin: 05/20/20 11:38 Dose: 2.5 ml Documented by: Discontinued Medications Albuterol/Ipratropium (Albuterol/Ipratropium 3.0-0.5 Mg/3 Ml Neb Soln) 3 ml NEB ONETIME ONE Stop: 05/20/20 10:45 Last Admin: 05/20/20 11:06 Dose: 3 ml Documented by: Clonidine HCl (Clonidine 0.1 Mg Tab) 0.1 mg PO ONETIME ONE Stop: 05/20/20 11:33 Last Admin: 05/20/20 11:46 Dose: 0.1 mg Documented by: Diltiazem HCl (Diltiazem 25 Mg/5 Ml Sdv) 25 mg IVPUSH ONETIME ONE Stop: 05/20/20 11:31 Last Admin: 05/20/20 11:46 Dose: Not Given Documented by: Magnesium Sulfate 2 gm/ Premix 50 mls @ 50 mls/hr IV ONETIME ONE Stop: 05/20/20 11:44 Last Admin: 05/20/20 11:38 Dose: 50 mls/hr Documented by: Sodium Chloride (Normal Saline) 1,000 mls @ 999 mls/hr IV .Bolus ONE Stop: 05/20/20 11:46 Last Admin: 05/20/20 11:43 Dose: 999 mls/hr Documented by: Ceftriaxone Sodium/Dextrose 1 (gm/ Premix) 50 mls @ 100 mls/hr IV ONETIME ONE Stop: 05/20/20 11:17 Last Admin: 05/20/20 11:38 Dose: 100 mls/hr Documented by: Azithromycin 500 mg/ Sodium (Chloride) 250 mls @ 250 mls/hr IV ONETIME [place] Last Admin: 05/20/20 12:37 Dose: 250 mls/hr Documented by: Ceftriaxone Sodium 1 gm/ (Sodium Chloride) 50 mls @ 100 mls/hr IV Q24H [place] Last Admin: 05/21/20 14:31 Dose: Not Given Documented by: Pantoprazole Sodium 40 mg/ (Sodium Chloride) 10 mls @ 300 mls/hr IV NOW ONE Stop: 05/20/20 16:05 Last Admin: 05/20/20 16:22 Dose: 300 mls/hr Documented by: Sodium Chloride (Normal Saline) 500 mls @ 999 mls/hr IV .BOLUS [place] Last Admin: 05/20/20 16:23 Dose: 999 mls/hr Documented by: Sodium Chloride (Normal Saline) 500 mls @ 999 mls/hr IV .BOLUS ONE Stop: 05/20/20 21:38 Last Admin: 05/20/20 21:17 Dose: 999 mls/hr Documented by: Sodium Chloride (Normal Saline) 500 mls @ 999 mls/hr IV .BOLUS ONE Stop: 05/21/20 00:11 Last Admin: 05/20/20 23:51 Dose: 999 mls/hr Documented by: Lorazepam (Lorazepam 2 Mg/Ml Sdv) 0.5 mg IVPUSH ONETIME ONE Stop: 05/20/20 10:47 Last Admin: 05/20/20 11:43 Dose: 0.5 mg Documented by: Methylprednisolone Sodium Succinate (Methylprednisolone Sodium Succinate 125 Mg/2 Ml Sdv) 125 mg IVPUSH ONETIME ONE Stop: 05/20/20 10:45 Last Admin: 05/20/20 11:36 Dose: 125 mg Documented by: Methylprednisolone Sodium Succinate (Methylprednisolone Sodium Succinate 125 Mg/2 Ml Sdv) 125 mg IVPUSH Q12H [facility] Last Admin: 05/20/20 19:36 Dose: Not Given Documented by: Methylprednisolone Sodium Succinate (Methylprednisolone Sodium Succinate 125 Mg/2 Ml Sdv) 125 mg IVPUSH Q12H [facility] Last Admin: 05/20/20 21:47 Dose: 125 mg Documented by: Sumatriptan Succinate (Sumatriptan 50 Mg Tab) 50 mg PO Q2H PRN PRN Reason: Headache Sumatriptan Succinate (Sumatriptan 6 Mg/0.5 Ml Sdv) 6 mg SUBCUT Q2H PRN PRN Reason: Headache Last Admin: 05/21/20 10:23 Dose: 6 mg Documented by: Terbutaline Sulfate (Terbutaline 1 Mg/Ml Sdv) 0.25 mg SUBCUT ONETIME ONE Stop: 05/20/20 10:46 Last Admin: 05/20/20 12:40 Dose: 0.25 mg Documented by: Terbutaline Sulfate (Terbutaline 1 Mg/Ml Sdv) 0.25 mg SUBCUT ONETIME ONE Stop: 05/20/20 12:01 Last Admin: 05/20/20 12:40 Dose: Not Given Documented by:
[2020-05-22] MEDS: Polyethylene Glycol 3350 Powder 17 GM Packet PO SCH (09:31)
== END 2020-05-22 09:40 | disposition home or self-care (01) | DRG 189 ==
LOC: MW.ED 10:43 → MW.ICU 14:10 → MW.MS 05-21 13:57
PROVIDERS: ADMIT Internal Medicine; ATTEND Internal Medicine
DX: J96.21 Acute and chronic respiratory failure with hypoxia (principal); J44.1 Chronic obstructive pulmonary disease with (acute) exacerbation; J96.22 Acute and chronic respiratory failure with hypercapnia; J96.01 Acute respiratory failure with hypoxia; J45.909 Unspecified asthma, uncomplicated; E78.00 Pure hypercholesterolemia, unspecified; Z79.82 Long term (current) use of aspirin; Z79.51 Long term (current) use of inhaled steroids; Z79.52 Long term (current) use of systemic steroids; Z99.81 Dependence on supplemental oxygen; Z79.899 Other long term (current) drug therapy; Z20.822 Contact with and (suspected) exposure to COVID-19
CPT/HCPCS: 36415; 36600 ×2; 70450; 71045; 80053; 82803 ×2; 83605; 83735; 83880; 84484; 85025; 87040 ×2; 87635; 93005; 94640; 94660; 96365; 96367; 96368; 96372; 96375; 99285; A9270; J0456; J0696; J2060; J2930; J3105; J3475; J7030; J7050; 80048; 81001; 82962; 93010; 99291; C9113; J1650; J2405; J3030; J7040; J7620-GY; U0002

== ENCOUNTER 2022-03-02 09:42 | Emergency (ER) | payer OTHER ==
[2022-03-02] MEDS ORDERED: Sodium Chloride 0.9% 10 ML Syringe FLUSH PRN (13:24)
[2022-03-02] MEDS ORDERED: Sodium Chloride 0.9% 2.5 ML Syringe FLUSH PRN (13:24)
[2022-03-02] MEDS ORDERED: Sodium Chloride 0.9% 1,000 ML IV ONE (13:24)
[2022-03-02] MEDS ORDERED: Ondansetron 4 MG/2 ML SDV IVPUSH ONE (13:24)
[2022-03-02] MEDS ORDERED: Albuterol/Ipratropium 3.0-0.5 MG/3 ML Neb Soln NEB ONE (13:27)
[2022-03-02] MEDS ORDERED: cefTRIAXone 1 GM in Sodium Chloride 0.9% 50 ML IV ONE (14:09)
[2022-03-02] MEDS ORDERED: Ketorolac 30 MG/ML SDV IVPUSH ONE (14:09)
[2022-03-02 14:47] LABS: CORONAVIRUS COVID-19 NAA NEGATIVE (NEGATIVE); INFLUENZA A NAA NEGATIVE (NEGATIVE); INFLUENZA B NAA NEGATIVE (NEGATIVE); RESPIRATORY SYNCYTIAL VIR NAA POSITIVE (NEGATIVE)
[2022-03-02 15:04] LABS: CARBON DIOXIDE,CO2 30.6 mmol/L (21.0-32.0); POTASSIUM,K 4.5 mmol/L (3.5-5.1)
== END 2022-03-02 16:33 | disposition home or self-care (01) ==
LOC: MW.ED 09:42
DX: J20.5 Acute bronchitis due to respiratory syncytial virus (principal); E86.0 Dehydration; R11.0 Nausea; J44.9 Chronic obstructive pulmonary disease, unspecified; E78.00 Pure hypercholesterolemia, unspecified; Z79.82 Long term (current) use of aspirin; Z79.899 Other long term (current) drug therapy; Z20.822 Contact with and (suspected) exposure to COVID-19
CPT/HCPCS: 0241U; 36415; 71045; 80053; 85025; 96365; 96375; 99284; J0696; J1885; J2405; J3490; J7030; J7050; J7620-GY

== ENCOUNTER 2022-05-06 12:07 | Emergency (ER) | payer OTHER ==
[2022-05-06] MEDS ORDERED: Albuterol 0.083% 2.5 MG/3 ML Neb Soln NEB STA (12:15)
[2022-05-06] MEDS ORDERED: Sodium Chloride 0.9% 2.5 ML Syringe FLUSH PRN (12:25)
[2022-05-06] MEDS ORDERED: Sodium Chloride 0.9% 10 ML Syringe FLUSH PRN (12:25)
[2022-05-06 12:55] LABS: CARBON DIOXIDE,CO2 28.7 mmol/L (21.0-32.0); POTASSIUM,K 4.4 mmol/L (3.5-5.1)
[2022-05-06 13:09] LABS: CORONAVIRUS COVID-19 NAA NEGATIVE (NEGATIVE); INFLUENZA A NAA NEGATIVE (NEGATIVE); INFLUENZA B NAA NEGATIVE (NEGATIVE); RESPIRATORY SYNCYTIAL VIR NAA NEGATIVE (NEGATIVE)
== END 2022-05-06 14:07 | disposition home or self-care (01) ==
LOC: MW.ED 12:07
DX: J44.1 Chronic obstructive pulmonary disease with (acute) exacerbation (principal); E78.00 Pure hypercholesterolemia, unspecified; Z79.82 Long term (current) use of aspirin; Z79.899 Other long term (current) drug therapy; Z20.822 Contact with and (suspected) exposure to COVID-19
CPT/HCPCS: 0241U; 36415; 71045; 80053; 85025; 94640; 99285; J3490; 93010; 99283; J7620-GY

== ENCOUNTER 2022-05-12 11:18 | Emergency (ER) | payer OTHER, MEDICARE ==
[2022-05-12] MEDS ORDERED: Ipratropium 0.02% 0.5 MG/2.5 ML Neb Soln ONE ×2 (11:23→11:24)
[2022-05-12] MEDS ORDERED: Albuterol 0.083% 2.5 MG/3 ML Neb Soln ONE (11:24)
[2022-05-12] MEDS ORDERED: Magnesium Sulfate/Water 2 GM in Premix Bag 1 BAG IV ONE (11:26)
[2022-05-12] MEDS ORDERED: methylPREDNISolone Sodium Succinate 125 MG/2 ML SDV IM ONE (11:28)
[2022-05-12] MEDS ORDERED: LORazepam 2 MG/ML SDV IVPUSH STA (11:46)
[2022-05-12] MEDS ORDERED: Albuterol/Ipratropium 3.0-0.5 MG/3 ML Neb Soln NEB ONE (12:07)
[2022-05-12] MEDS ORDERED: Albuterol 0.083% 2.5 MG/3 ML Neb Soln NEB STA (12:09)
[2022-05-12] MEDS ORDERED: Ipratropium 0.02% 0.5 MG/2.5 ML Neb Soln NEB STA (12:09)
[2022-05-12 12:29] LABS: CARBON DIOXIDE,CO2 30.1 mmol/L (21.0-32.0); POTASSIUM,K 4.4 mmol/L (3.5-5.1)
[2022-05-12 13:35] LABS: CORONAVIRUS COVID-19 NAA NEGATIVE (NEGATIVE); INFLUENZA A NAA NEGATIVE (NEGATIVE); INFLUENZA B NAA NEGATIVE (NEGATIVE)
== END 2022-05-12 20:15 ==
LOC: MW.ED 11:18
DX: J44.1 Chronic obstructive pulmonary disease with (acute) exacerbation (principal); J96.21 Acute and chronic respiratory failure with hypoxia; Z79.82 Long term (current) use of aspirin; Z20.822 Contact with and (suspected) exposure to COVID-19
CPT/HCPCS: 0240U; 36415; 36600; 71045; 80048; 82803; 85025; 93005; 96365; 96372; 96375; 99285; J2060; J2930; J3475; 93010; 99291; J3490; J7620-GY

== ENCOUNTER 2024-11-22 09:45 | Day surgery (SDC) | payer OTHER ==
[2024-11-22] MEDS: Lactated Ringers 1,000 ML IV SCH (10:46)
[2024-11-22] MEDS ORDERED: propofoL 500 MG/50 ML 50 ML ONE (11:15)
[2024-11-22] MEDS ORDERED: Lactated Ringers 1,000 ML IV SCH (13:00)
== END 2024-11-22 13:41 | disposition home or self-care (01) ==
LOC: MW.SDS 09:45
PROVIDERS: ATTEND Surgery
DX: Z12.11 Encounter for screening for malignant neoplasm of colon (principal); D12.5 Benign neoplasm of sigmoid colon; K31.89 Other diseases of stomach and duodenum; K29.50 Unspecified chronic gastritis without bleeding; K44.9 Diaphragmatic hernia without obstruction or gangrene; I48.91 Unspecified atrial fibrillation; I10 Essential (primary) hypertension; K21.00 Gastro-esophageal reflux disease with esophagitis, without bleeding; Z88.8 Allergy status to other drugs, medicaments and biological substances; Z88.5 Allergy status to narcotic agent; Z79.01 Long term (current) use of anticoagulants; Z87.891 Personal history of nicotine dependence; Z79.899 Other long term (current) drug therapy; Z86.0100 Personal history of colon polyps, unspecified
CPT/HCPCS: 43239; 45380; J2704; J7120; 00813; 88305